=== PATIENT | female | born 1955 | race Caucasian/White ===

== ENCOUNTER 2022-03-16 03:51 | Inpatient (IN) | payer MEDICARE ==
[~2022-03-16] VITALS: Ht 165.1 cm; Wt 138.0 kg
[2022-03-16] MEDS ORDERED: SODIUM CHLORIDE 0.9% 1,000 ML IV ONE (04:00)
[2022-03-16 05:09] LABS: BASOPHILS % (AUTO) 0.3 % (0.0-2.0); EOSINOPHILS % (AUTO) 0.1 % (1.0-6.0); HEMATOCRIT 45.7 % (36-46); HEMOGLOBIN 14.8 g/dL (12.0-16.0); LYMPHOCYTES # (AUTO) 1.9 K/uL (1.0-4.8); LYMPHOCYTES % (AUTO) 16.1 % (22.0-44.0); MEAN CORPUSCULAR HGB CONC 32.4 G/dL (31.0-37.0); MEAN CORPUSCULAR VOLUME 86 fL (80-100); MONOCYTES # (AUTO) 0.8 K/uL (0.1-1.0); MONOCYTES % (AUTO) 6.6 % (2.0-9.0); NEUTROPHILS % (AUTO) 76.9 % (40.0-70.0); PLATELET COUNT (AUTO) 309 K/uL (150-450); RED BLOOD CELL COUNT(AUTO) 5.31 MIL/uL (4.00-5.20); RED CELL DISTRIBUTION WIDTH 14.5 % (11.5-14.5)
[2022-03-16 05:12] LABS: COVID AG,FIA SOURCE NASAL SWAB
[2022-03-16 05:23] LABS: APPEARANCE,URINE CLEAR (CLEAR); GLUCOSE, URINE (UA) >=1000 mg/dL (NEGATIVE); KETONES,URINE =>150 mg/dL (NEGATIVE); LEUKOCYTE ESTERASE ,URINE NEGATIVE (NEGATIVE); NITRATE,URINE NEGATIVE (NEGATIVE); OCCULT BLOOD,URINE NEGATIVE (NEGATIVE); PROTEIN,URINE 30-70 mg/dL (NEGATIVE)
[2022-03-16 05:24] LABS: ALBUMIN 3.8 g/dL (3.4-5.0); BILIRUBIN,TOTAL 0.7 mg/dL (0.1-1.0); CALCIUM, TOTAL 10.4 mg/dL (8.8-10.5); CREATININE 1.69 mg/dL (0.60-1.30); POTASSIUM 4.7 mmol/L (3.5-5.1); PROTHROMBIN TIME 10.5 SEC (9.4-11.6); TOTAL PROTEIN, SERUM 8.3 g/dL (6.4-8.2)
[2022-03-16 05:33] LABS: BILIRUBIN,URINE SMALL (NEGATIVE)
[2022-03-16 05:41] LABS: BACTERIA,URINE None Seen /HPF (None Seen); HYALINE CASTS, URINE 0-2 /LPF (None Seen); RBC,URINE 0-2 /HPF (0-2); SQUAMOUS EPITHELIAL CELL,UR Rare /LPF (None Seen); WBC,URINE 0-2 /HPF (0-5)
[2022-03-16 05:45] LABS: LACTIC ACID 1.9 mmol/L (0.4-2.0)
[2022-03-16] MEDS ORDERED: ONDANSETRON HCL 4 MG/2 ML VIAL IVP ONE (05:45)
[2022-03-16] MEDS ORDERED: INSULIN REGULAR, HUMAN 100 UNITS/ML IVP ONE ×2 (06:00→12:45)
[2022-03-16] MEDS ORDERED: DEXTROSE 50%-WATER 25 GM/50 ML SYRINGE IVP PRN ×3 (06:00→19:30)
[2022-03-16] MEDS ORDERED: INSULIN REGULAR, HUMAN 100 UNITS/ML IVP PRN ×2 (06:00→12:45)
[2022-03-16] MEDS ORDERED: SODIUM CHLORIDE 0.9% 1,000 ML IV SCH ×2 (06:00→12:45)
[2022-03-16] MEDS ORDERED: DEXTROSE 5%-0.45% SODIUM CHL 1,000 ML IV PRN (06:00)
[2022-03-16] MEDS ORDERED: POTASSIUM CHL 20 MEQ/0.45% NS 1,000 ML IV PRN ×2 (06:00→12:45)
[2022-03-16] MEDS ORDERED: POTASSIUM CHLORIDE 40 MEQ in SODIUM CHLORIDE 0.45% 1,000 ML IV PRN ×2 (06:00→12:45)
[2022-03-16] MEDS ORDERED: SODIUM CHLORIDE 0.45% 1,000 ML IV PRN ×2 (06:00→12:45)
[2022-03-16] MEDS ORDERED: INSULIN REGULAR, HUMAN 100 UNITS in SODIUM CHLORIDE 0.9% 99 ML IV PRN ×4 (06:00→12:45)
[2022-03-16 06:29] LABS: CALCIUM, TOTAL 9.7 mg/dL (8.8-10.5); CREATININE 1.61 mg/dL (0.60-1.30); POTASSIUM 4.9 mmol/L (3.5-5.1)
[2022-03-16 06:43] LABS: ABG BASE EXCESS -18.1 mmol/L (-2.0-3.0); ABG CARBOXYHEMOGLOBIN 0.5 % (0.0-1.5); ABG METHEMOGLOBIN 0.4 % (0.0-1.5); ABG OXYGEN CONTENT 21.2 mL/dL (15.0-23.0); ABG OXYGEN SATURATION 97.8 % (95.0-98.0); ABG OXYHEMOGLOBIN 96.9 % (94.0-100.0); ABG PCO2 20 mmHg (35-45); ABG PH 7.266 (7.35-7.450); ABG TOTAL HEMOGLOBIN 15.5 G/dL (12.0-18.0); PO2, ARTERIAL BG 118.6 mmHg (66.0-74.0); SOURCE, BLOOD GAS ARTERIAL
[2022-03-16 06:45] LABS: SITE, BLOOD GAS LFT BRACHIAL
[2022-03-16 07:21] LABS: GLUCOMETER DEV NAME(LOC) ERT.5; GLUCOSE,POINT OF CARE 370 MG/DL (70-110)
[2022-03-16] MEDS ORDERED: NiCARDipine HCL 25 MG in DEXTROSE 5%-WATER 240 ML IV PRN (07:45)
[2022-03-16] MEDS ORDERED: ONDANSETRON HCL 4 MG/2 ML VIAL IVP PRN ×2 (07:45→12:45)
[2022-03-16] MEDS ORDERED: 0.9% SODIUM CHLORIDE 10 ML SYRINGE IVP PRN (07:45)
[2022-03-16] MEDS ORDERED: ACETAMINOPHEN 325 MG TABLET PO PRN ×2 (07:45→12:45)
[2022-03-16 08:58] LABS: CREATININE 1.59 mg/dL (0.60-1.30); MAGNESIUM 2.1 mg/dL (1.80-2.40); PHOSPHORUS 3.9 mg/dL (2.5-4.9); POTASSIUM 5.2 mmol/L (3.5-5.1)
[2022-03-16 09:41] LABS: GLUCOSE,POINT OF CARE 379 MG/DL (70-110)
[2022-03-16 12:01] LABS: GLUCOSE,POINT OF CARE 317 MG/DL (70-110)
[2022-03-16] MEDS ORDERED: MORPHINE SULFATE 2 MG/ML SYRINGE IVP PRN (12:45)
[2022-03-16] MEDS ORDERED: ZOLPIDEM TARTRATE 5 MG TABLET PO PRN (12:45)
[2022-03-16] MEDS ORDERED: MAGNESIUM HYDROXIDE SUSPENSION 30 ML UDCUP PO PRN (12:45)
[2022-03-16] MEDS ORDERED: BISACODYL 10 MG RECTAL RECTAL SUPPOSITORY PR PRN (12:45)
[2022-03-16] MEDS ORDERED: HYDROCODONE/ACETAMINOPHEN 5-325 MG TABLET PO PRN (12:45)
[2022-03-16 14:40] LABS: BASOPHILS % (AUTO) 0.1 % (0.0-2.0); EOSINOPHILS % (AUTO) 0.3 % (1.0-6.0); HEMATOCRIT 44.7 % (36-46); HEMOGLOBIN 14.9 g/dL (12.0-16.0); LYMPHOCYTES # (AUTO) 2.5 K/uL (1.0-4.8); LYMPHOCYTES % (AUTO) 18.4 % (22.0-44.0); MEAN CORPUSCULAR HEMOGLOBIN 28.1 pg (26.0-34.0); MEAN CORPUSCULAR HGB CONC 33.3 G/dL (31.0-37.0); MEAN CORPUSCULAR VOLUME 85 fL (80-100); MONOCYTES # (AUTO) 0.9 K/uL (0.1-1.0); MONOCYTES % (AUTO) 6.5 % (2.0-9.0); NEUTROPHILS # (AUTO) 10.1 K/uL (1.8-7.7); NEUTROPHILS % (AUTO) 74.7 % (40.0-70.0); PLATELET COUNT (AUTO) 272 K/uL (150-450); RED CELL DISTRIBUTION WIDTH 14.3 % (11.5-14.5)
[2022-03-16] MEDS: DEXTROSE 5%-0.45% SODIUM CHL 1,000 ML IV PRN (14:41)
[2022-03-16 14:49] LABS: CALCIUM, TOTAL 10.3 mg/dL (8.8-10.5); CREATININE 1.47 mg/dL (0.60-1.30); POTASSIUM 3.7 mmol/L (3.5-5.1)
[2022-03-16] MEDS ORDERED: NiCARDipine HCL 25 MG in SODIUM CHLORIDE 0.9% 240 ML IV PRN (15:30)
[2022-03-16 16:00] VITALS: BP 140/64
[2022-03-16] MEDS ORDERED: HEPARIN SODIUM,PORCINE 5,000 UNITS/ML VIAL SQ SCH (16:00)
[2022-03-16 18:16] LABS: GLUCOMETER DEV NAME(LOC) AHU.; GLUCOSE,POINT OF CARE 189 MG/DL (70-110)
[2022-03-16 18:16] LABS: GLUCOMETER DEV NAME(LOC) AHU.; GLUCOSE,POINT OF CARE 175 MG/DL (70-110)
[2022-03-16 18:16] LABS: GLUCOMETER DEV NAME(LOC) AHU.; GLUCOSE,POINT OF CARE 215 MG/DL (70-110)
[2022-03-16 18:28] LABS: CALCIUM, TOTAL 9.9 mg/dL (8.8-10.5); CREATININE 1.35 mg/dL (0.60-1.30); POTASSIUM 3.6 mmol/L (3.5-5.1)
[2022-03-16] MEDS ORDERED: SODIUM CHLORIDE 0.45% 1,000 ML IV SCH (19:30)
[2022-03-16] MEDS: INSULIN LISPRO 100 UNITS/ML SQ PRN (19:37)
[2022-03-16 20:00] VITALS: BP 145/84
[2022-03-16] MEDS: DOCUSATE SODIUM 100 MG CAPSULE PO SCH (20:51)
[2022-03-16 21:11] LABS: GLUCOSE,POINT OF CARE 176 MG/DL (70-110)
[2022-03-16 21:11] LABS: GLUCOSE,POINT OF CARE 200 MG/DL (70-110)
[2022-03-16 21:11] LABS: GLUCOSE,POINT OF CARE 199 MG/DL (70-110)
[2022-03-16 21:11] LABS: GLUCOSE,POINT OF CARE 212 MG/DL (70-110)
[2022-03-16 22:27] LABS: CALCIUM, TOTAL 9.8 mg/dL (8.8-10.5); CREATININE 1.37 mg/dL (0.60-1.30); POTASSIUM 3.6 mmol/L (3.5-5.1)
[2022-03-16 23:26] LABS: GLUCOSE,POINT OF CARE 237 MG/DL (70-110)
[2022-03-16 23:26] LABS: GLUCOSE,POINT OF CARE 231 MG/DL (70-110)
[2022-03-17] VITALS: BP 153/89
[2022-03-17 02:28] LABS: CALCIUM, TOTAL 9.7 mg/dL (8.8-10.5); CREATININE 1.34 mg/dL (0.60-1.30); POTASSIUM 3.7 mmol/L (3.5-5.1)
[2022-03-17 03:31] LABS: GLUCOSE,POINT OF CARE 241 MG/DL (70-110)
[2022-03-17 03:31] LABS: GLUCOSE,POINT OF CARE 239 MG/DL (70-110)
[2022-03-17 04:00] VITALS: BP 163/76
[2022-03-17 06:16] LABS: GLUCOSE,POINT OF CARE 244 MG/DL (70-110)
[2022-03-17 06:16] LABS: GLUCOSE,POINT OF CARE 209 MG/DL (70-110)
[2022-03-17 06:17] LABS: GLUCOSE,POINT OF CARE 172 MG/DL (70-110)
[2022-03-17 06:35] LABS: BILIRUBIN,TOTAL 0.5 mg/dL (0.1-1.0); CALCIUM, TOTAL 9.7 mg/dL (8.8-10.5); CREATININE 1.3 mg/dL (0.60-1.30); MAGNESIUM 1.7 mg/dL (1.80-2.40); PHOSPHORUS 2.3 mg/dL (2.5-4.9); POTASSIUM 3.5 mmol/L (3.5-5.1); TOTAL PROTEIN, SERUM 6.8 g/dL (6.4-8.2)
[2022-03-17] MEDS: INSULIN LISPRO 100 UNITS/ML SQ PRN ×4 (07:22→20:54)
[2022-03-17 08:00] VITALS: BP 183/89
[2022-03-17] MEDS ORDERED: MAGNESIUM OXIDE 400 MG TABLET PO ONE (08:45)
[2022-03-17] MEDS: SODIUM,POTASSIUM PHOSPHATES POWDER PACKET PO SCH ×2 (08:50→20:49)
[2022-03-17] MEDS: SODIUM CHLORIDE 0.45% 1,000 ML IV SCH (08:50)
[2022-03-17] MEDS: DOCUSATE SODIUM 100 MG CAPSULE PO SCH ×2 (08:50→20:49)
[2022-03-17] MEDS: PANTOPRAZOLE SODIUM 40 MG DR TABLET PO SCH (08:50)
[2022-03-17] MEDS: INSULIN GLARGINE,HUM.REC.ANLOG 100 UNITS/ML SQ SCH ×2 (08:54→20:51)
[2022-03-17] MEDS: HydrALAZINE HCL 20 MG/ML VIAL IVP PRN (10:09)
[2022-03-17 12:00] VITALS: BP 181/107
[2022-03-17] MEDS: AmLODIPine BESYLATE 10 MG TABLET PO SCH (12:07)
[2022-03-17 12:56] LABS: GLUCOSE,POINT OF CARE 247 MG/DL (70-110)
[2022-03-17 12:56] LABS: GLUCOSE,POINT OF CARE 253 MG/DL (70-110)
[2022-03-17] MEDS ORDERED: HydrALAZINE HCL 20 MG/ML VIAL IVP ONE (13:30)
[2022-03-17] MEDS: CefTRIAXone 1 GM/DEXTROSE 50 ML IV SCH (13:39)
[2022-03-17] MEDS ORDERED: SODIUM CHLORIDE 0.9% 250 ML IV ONE (13:44)
[2022-03-17 16:00] VITALS: BP 165/79
[2022-03-17 20:00] VITALS: BP 131/74
[2022-03-17 20:56] LABS: GLUCOSE,POINT OF CARE 183 MG/DL (70-110)
[2022-03-17 20:56] LABS: GLUCOSE,POINT OF CARE 183 MG/DL (70-110)
[2022-03-17 20:56] LABS: GLUCOSE,POINT OF CARE 329 MG/DL (70-110)
[2022-03-17 20:56] LABS: GLUCOSE,POINT OF CARE 268 MG/DL (70-110)
[2022-03-18] VITALS: BP 148/74
[2022-03-18] MEDS: DEXTROSE 5%-0.45% SODIUM CHL 1,000 ML IV PRN (01:24)
[2022-03-18] MEDS: SODIUM CHLORIDE 0.45% 1,000 ML IV SCH ×2 (01:30→16:33)
[2022-03-18 02:01] LABS: GLUCOSE,POINT OF CARE 259 MG/DL (70-110)
[2022-03-18 04:00] VITALS: BP 156/87
[2022-03-18] MEDS: INSULIN LISPRO 100 UNITS/ML SQ PRN ×4 (06:20→21:20)
[2022-03-18] MEDS: HydrALAZINE HCL 20 MG/ML VIAL IVP PRN ×2 (06:30→15:39)
[2022-03-18 06:39] LABS: BASOPHILS % (AUTO) 0.4 % (0.0-2.0); EOSINOPHILS % (AUTO) 0.9 % (1.0-6.0); HEMATOCRIT 40.7 % (36-46); HEMOGLOBIN 13.6 g/dL (12.0-16.0); LYMPHOCYTES # (AUTO) 2.2 K/uL (1.0-4.8); LYMPHOCYTES % (AUTO) 27.3 % (22.0-44.0); MEAN CORPUSCULAR HGB CONC 33.3 G/dL (31.0-37.0); MEAN CORPUSCULAR VOLUME 84 fL (80-100); MONOCYTES # (AUTO) 0.7 K/uL (0.1-1.0); MONOCYTES % (AUTO) 8.9 % (2.0-9.0); NEUTROPHILS # (AUTO) 4.9 K/uL (1.8-7.7); NEUTROPHILS % (AUTO) 62.5 % (40.0-70.0); PLATELET COUNT (AUTO) 251 K/uL (150-450); RED BLOOD CELL COUNT(AUTO) 4.85 MIL/uL (4.00-5.20); RED CELL DISTRIBUTION WIDTH 14.4 % (11.5-14.5)
[2022-03-18 06:45] LABS: CALCIUM, TOTAL 9.4 mg/dL (8.8-10.5); CREATININE 1.1 mg/dL (0.60-1.30); POTASSIUM 3.5 mmol/L (3.5-5.1)
[2022-03-18 07:53] LABS: MAGNESIUM 1.5 mg/dL (1.80-2.40); PHOSPHORUS 3.8 mg/dL (2.5-4.9)
[2022-03-18 08:00] VITALS: BP 142/101
[2022-03-18] MEDS: DOCUSATE SODIUM 100 MG CAPSULE PO SCH ×2 (08:11→21:00)
[2022-03-18] MEDS: INSULIN GLARGINE,HUM.REC.ANLOG 100 UNITS/ML SQ SCH ×2 (08:14→21:20)
[2022-03-18] MEDS: AmLODIPine BESYLATE 10 MG TABLET PO SCH (08:14)
[2022-03-18] MEDS: PANTOPRAZOLE SODIUM 40 MG DR TABLET PO SCH (08:14)
[2022-03-18 10:41] VITALS: BP 183/79
[2022-03-18 11:31] LABS: GLUCOSE,POINT OF CARE 300 MG/DL (70-110)
[2022-03-18] MEDS ORDERED: MAGNESIUM OXIDE 400 MG TABLET PO ONE (11:45)
[2022-03-18] MEDS: HydrALAZINE HCL 25 MG TABLET PO SCH ×2 (11:45→21:19)
[2022-03-18] MEDS ORDERED: SODIUM CHLORIDE 0.9% 250 ML IV ONE (12:37)
[2022-03-18] MEDS: CefTRIAXone 1 GM/DEXTROSE 50 ML IV SCH (12:38)
[2022-03-18 15:08] VITALS: BP 176/90
[2022-03-18 20:11] VITALS: BP 166/89
[2022-03-19] VITALS (8 sets, daily range): BP systolic 140–186; BP diastolic 68–94
[2022-03-19] MEDS: INSULIN LISPRO 100 UNITS/ML SQ PRN ×4 (05:46→20:29)
[2022-03-19 07:35] LABS: ANION GAP 12 mmol/L (8-16); CALCIUM, TOTAL 9.2 mg/dL (8.8-10.5); CARBON DIOXIDE 24 mmol/L (22-29); CHLORIDE 102 mmol/L (98-107); CREATININE 0.89 mg/dL (0.60-1.30); GLOMERULAR FILTR. RATE CALC > 60 mL/min (>60); GLUCOSE,RANDOM 262 mg/dL (70-110); POTASSIUM 3.1 mmol/L (3.5-5.1); SODIUM SERUM 138 mmol/L (136-145); UREA NITROGEN, BLOOD 13 mg/dL (7-18)
[2022-03-19] MEDS: HydrALAZINE HCL 25 MG TABLET PO SCH ×2 (08:02→20:26)
[2022-03-19] MEDS: PANTOPRAZOLE SODIUM 40 MG DR TABLET PO SCH (08:02)
[2022-03-19] MEDS: DOCUSATE SODIUM 100 MG CAPSULE PO SCH ×3 (08:02→20:29)
[2022-03-19] MEDS: AmLODIPine BESYLATE 10 MG TABLET PO SCH (08:02)
[2022-03-19] MEDS: INSULIN GLARGINE,HUM.REC.ANLOG 100 UNITS/ML SQ SCH ×2 (08:13→20:28)
[2022-03-19 08:15] LABS: BASOPHILS % (AUTO) 0.5 % (0.0-2.0); EOSINOPHILS % (AUTO) 1.5 % (1.0-6.0); HEMATOCRIT 40.6 % (36-46); HEMOGLOBIN 13.7 g/dL (12.0-16.0); LYMPHOCYTES % (AUTO) 31.4 % (22.0-44.0); MEAN CORPUSCULAR HEMOGLOBIN 28.1 pg (26.0-34.0); MEAN CORPUSCULAR HGB CONC 33.8 G/dL (31.0-37.0); MEAN CORPUSCULAR VOLUME 83 fL (80-100); MONOCYTES # (AUTO) 0.6 K/uL (0.1-1.0); NEUTROPHILS # (AUTO) 3.7 K/uL (1.8-7.7); NEUTROPHILS % (AUTO) 57.6 % (40.0-70.0); PLATELET COUNT (AUTO) 220 K/uL (150-450); RED BLOOD CELL COUNT(AUTO) 4.89 MIL/uL (4.00-5.20); RED CELL DISTRIBUTION WIDTH 14.2 % (11.5-14.5)
[2022-03-19] MEDS ORDERED: MAGNESIUM OXIDE 400 MG TABLET PO ONE (09:00)
[2022-03-19] MEDS ORDERED: POTASSIUM CHLORIDE 20 MEQ ER TABLET PO ONE (09:00)
[2022-03-19] MEDS: SODIUM CHLORIDE 0.45% 1,000 ML IV SCH (13:04)
[2022-03-19] MEDS: CefTRIAXone 1 GM/DEXTROSE 50 ML IV SCH (13:04)
[2022-03-19] MEDS: HydrALAZINE HCL 20 MG/ML VIAL IVP PRN (16:12)
[2022-03-19] MEDS ORDERED: HydrALAZINE HCL 25 MG TABLET PO ONE (20:45)
[2022-03-20 03:36] VITALS: BP 165/96
[2022-03-20 05:32] LABS: GLUCOMETER DEV NAME(LOC) 5N.1C; GLUCOSE,POINT OF CARE 384 MG/DL (70-110)
[2022-03-20] MEDS: INSULIN LISPRO 100 UNITS/ML SQ PRN ×4 (06:25→21:37)
[2022-03-20 06:32] LABS: GLUCOMETER DEV NAME(LOC) 5N.3; GLUCOSE,POINT OF CARE 324 MG/DL (70-110)
[2022-03-20 06:32] LABS: GLUCOMETER DEV NAME(LOC) 5N.3; GLUCOSE,POINT OF CARE 314 MG/DL (70-110)
[2022-03-20 07:11] LABS: GLUCOMETER DEV NAME(LOC) 6N.2; GLUCOSE,POINT OF CARE 286 MG/DL (70-110)
[2022-03-20 07:18] LABS: EOSINOPHILS % (AUTO) 1.5 % (1.0-6.0); HEMATOCRIT 39.6 % (36-46); HEMOGLOBIN 13.2 g/dL (12.0-16.0); LYMPHOCYTES % (AUTO) 30.8 % (22.0-44.0); MEAN CORPUSCULAR HEMOGLOBIN 27.9 pg (26.0-34.0); MEAN CORPUSCULAR HGB CONC 33.4 G/dL (31.0-37.0); MEAN CORPUSCULAR VOLUME 84 fL (80-100); MONOCYTES # (AUTO) 0.5 K/uL (0.1-1.0); NEUTROPHILS # (AUTO) 3.8 K/uL (1.8-7.7); NEUTROPHILS % (AUTO) 58.7 % (40.0-70.0); PLATELET COUNT (AUTO) 185 K/uL (150-450); RED BLOOD CELL COUNT(AUTO) 4.74 MIL/uL (4.00-5.20)
[2022-03-20 07:29] LABS: ANION GAP 10 mmol/L (8-16); CALCIUM, TOTAL 8.9 mg/dL (8.8-10.5); CARBON DIOXIDE 25 mmol/L (22-29); CHLORIDE 102 mmol/L (98-107); CREATININE 0.82 mg/dL (0.60-1.30); GLOMERULAR FILTR. RATE CALC > 60 mL/min (>60); GLUCOSE,RANDOM 282 mg/dL (70-110); POTASSIUM 3.5 mmol/L (3.5-5.1); SODIUM SERUM 137 mmol/L (136-145); UREA NITROGEN, BLOOD 12 mg/dL (7-18)
[2022-03-20 08:12] VITALS: BP 166/72
[2022-03-20] MEDS: AmLODIPine BESYLATE 10 MG TABLET PO SCH (08:22)
[2022-03-20] MEDS: DOCUSATE SODIUM 100 MG CAPSULE PO SCH ×2 (08:22→21:00)
[2022-03-20] MEDS: PANTOPRAZOLE SODIUM 40 MG DR TABLET PO SCH (08:22)
[2022-03-20 08:26] LABS: GLUCOMETER DEV NAME(LOC) 5S.1B; GLUCOSE,POINT OF CARE 258 MG/DL (70-110)
[2022-03-20 08:26] LABS: GLUCOMETER DEV NAME(LOC) 5S.1B; GLUCOSE,POINT OF CARE 362 MG/DL (70-110)
[2022-03-20 08:26] LABS: GLUCOMETER DEV NAME(LOC) 5S.1B; GLUCOSE,POINT OF CARE 302 MG/DL (70-110)
[2022-03-20] MEDS: INSULIN GLARGINE,HUM.REC.ANLOG 100 UNITS/ML SQ SCH ×2 (08:28→21:36)
[2022-03-20] MEDS: HydrALAZINE HCL 50 MG TABLET PO SCH ×2 (11:08→21:32)
[2022-03-20] MEDS ORDERED: ENALAPRILAT DIHYDRATE 1.25 MG/ML VIAL IVP PRN (13:00)
[2022-03-20] MEDS ORDERED: MAGNESIUM SULFATE 3 GM in DEXTROSE 5%-WATER 100 ML IV ONE (13:00)
[2022-03-20 16:11] VITALS: BP 159/77
[2022-03-20] MEDS: CefTRIAXone 1 GM/DEXTROSE 50 ML IV SCH (16:29)
[2022-03-20 20:00] VITALS: BP 127/62
[2022-03-21 04:00] VITALS: BP 148/75
[2022-03-21] MEDS: INSULIN LISPRO 100 UNITS/ML SQ PRN ×4 (06:07→21:37)
[2022-03-21 07:16] LABS: BASOPHILS % (AUTO) 0.5 % (0.0-2.0); EOSINOPHILS % (AUTO) 1.2 % (1.0-6.0); HEMATOCRIT 38.3 % (36-46); LYMPHOCYTES % (AUTO) 29.8 % (22.0-44.0); MEAN CORPUSCULAR HEMOGLOBIN 28.4 pg (26.0-34.0); MEAN CORPUSCULAR VOLUME 84 fL (80-100); MONOCYTES # (AUTO) 0.6 K/uL (0.1-1.0); MONOCYTES % (AUTO) 9.4 % (2.0-9.0); NEUTROPHILS # (AUTO) 3.9 K/uL (1.8-7.7); NEUTROPHILS % (AUTO) 59.1 % (40.0-70.0); PLATELET COUNT (AUTO) 182 K/uL (150-450); RED BLOOD CELL COUNT(AUTO) 4.58 MIL/uL (4.00-5.20); RED CELL DISTRIBUTION WIDTH 13.8 % (11.5-14.5)
[2022-03-21 07:34] LABS: ALANINE AMINOTRANSFERASE 11 U/L (12-78); ALBUMIN 2.6 g/dL (3.4-5.0); ALKALINE PHOSPHATASE 61 U/L (46-116); ANION GAP 7 mmol/L (8-16); ASPARTATE AMINOTRANSFERASE 10 U/L (15-37); BILIRUBIN,TOTAL 0.5 mg/dL (0.1-1.0); CALCIUM, TOTAL 8.7 mg/dL (8.8-10.5); CARBON DIOXIDE 29 mmol/L (22-29); CHLORIDE 102 mmol/L (98-107); CREATININE 0.83 mg/dL (0.60-1.30); GLOMERULAR FILTR. RATE CALC > 60 mL/min (>60); GLUCOSE,RANDOM 263 mg/dL (70-110); POTASSIUM 3.5 mmol/L (3.5-5.1); SODIUM SERUM 138 mmol/L (136-145); TOTAL PROTEIN, SERUM 6.1 g/dL (6.4-8.2); UREA NITROGEN, BLOOD 13 mg/dL (7-18)
[2022-03-21 08:00] VITALS: BP 158/81
[2022-03-21] MEDS: DOCUSATE SODIUM 100 MG CAPSULE PO SCH ×2 (09:00→21:00)
[2022-03-21] MEDS: HydrALAZINE HCL 50 MG TABLET PO SCH ×2 (11:10→21:35)
[2022-03-21] MEDS: PANTOPRAZOLE SODIUM 40 MG DR TABLET PO SCH (11:11)
[2022-03-21] MEDS: LISINOPRIL 5 MG TABLET PO SCH (11:11)
[2022-03-21] MEDS: AmLODIPine BESYLATE 10 MG TABLET PO SCH (11:11)
[2022-03-21] MEDS: INSULIN GLARGINE,HUM.REC.ANLOG 100 UNITS/ML SQ SCH ×2 (11:12→21:38)
[2022-03-21 16:00] VITALS: BP 163/89
[2022-03-21 16:21] LABS: GLUCOMETER DEV NAME(LOC) 5N.1C; GLUCOSE,POINT OF CARE 262 MG/DL (70-110)
[2022-03-21 16:32] LABS: GLUCOMETER DEV NAME(LOC) 6N.2; GLUCOSE,POINT OF CARE 324 MG/DL (70-110)
[2022-03-21 16:38] LABS: GLUCOMETER DEV NAME(LOC) 6N.1; GLUCOSE,POINT OF CARE 325 MG/DL (70-110)
[2022-03-21 16:38] LABS: GLUCOMETER DEV NAME(LOC) 6N.1; GLUCOSE,POINT OF CARE 288 MG/DL (70-110)
[2022-03-21 16:39] LABS: GLUCOMETER DEV NAME(LOC) 6N.2; GLUCOSE,POINT OF CARE 324 MG/DL (70-110)
[2022-03-21] MEDS: CefTRIAXone 1 GM/DEXTROSE 50 ML IV SCH (16:59)
[2022-03-21 19:01] LABS: GLUCOMETER DEV NAME(LOC) 6N.1; GLUCOSE,POINT OF CARE 317 MG/DL (70-110)
[2022-03-21 19:01] LABS: GLUCOMETER DEV NAME(LOC) 6N.1; GLUCOSE,POINT OF CARE 268 MG/DL (70-110)
[2022-03-21 19:30] VITALS: BP 116/52
[2022-03-21 22:21] LABS: GLUCOMETER DEV NAME(LOC) 6N.2; GLUCOSE,POINT OF CARE 258 MG/DL (70-110)
[2022-03-22 04:00] VITALS: BP 138/72
[2022-03-22 06:46] LABS: BASOPHILS % (AUTO) 0.3 % (0.0-2.0); EOSINOPHILS % (AUTO) 1.4 % (1.0-6.0); HEMATOCRIT 39.5 % (36-46); HEMOGLOBIN 13.1 g/dL (12.0-16.0); LYMPHOCYTES # (AUTO) 2.4 K/uL (1.0-4.8); LYMPHOCYTES % (AUTO) 32.6 % (22.0-44.0); MEAN CORPUSCULAR HEMOGLOBIN 27.8 pg (26.0-34.0); MEAN CORPUSCULAR HGB CONC 33.1 G/dL (31.0-37.0); MEAN CORPUSCULAR VOLUME 84 fL (80-100); MONOCYTES # (AUTO) 0.7 K/uL (0.1-1.0); MONOCYTES % (AUTO) 9.3 % (2.0-9.0); NEUTROPHILS # (AUTO) 4.1 K/uL (1.8-7.7); NEUTROPHILS % (AUTO) 56.4 % (40.0-70.0); PLATELET COUNT (AUTO) 200 K/uL (150-450); RED BLOOD CELL COUNT(AUTO) 4.71 MIL/uL (4.00-5.20); RED CELL DISTRIBUTION WIDTH 14.3 % (11.5-14.5)
[2022-03-22 06:54] LABS: ALANINE AMINOTRANSFERASE 12 U/L (12-78); ALBUMIN 2.7 g/dL (3.4-5.0); ALKALINE PHOSPHATASE 58 U/L (46-116); ANION GAP 9 mmol/L (8-16); ASPARTATE AMINOTRANSFERASE 8 U/L (15-37); BILIRUBIN,TOTAL 0.5 mg/dL (0.1-1.0); CALCIUM, TOTAL 9.1 mg/dL (8.8-10.5); CARBON DIOXIDE 27 mmol/L (22-29); CHLORIDE 102 mmol/L (98-107); CREATININE 0.85 mg/dL (0.60-1.30); GLOMERULAR FILTR. RATE CALC > 60 mL/min (>60); GLUCOSE,RANDOM 252 mg/dL (70-110); POTASSIUM 3.6 mmol/L (3.5-5.1); SODIUM SERUM 138 mmol/L (136-145); TOTAL PROTEIN, SERUM 6.3 g/dL (6.4-8.2); UREA NITROGEN, BLOOD 16 mg/dL (7-18)
[2022-03-22] MEDS: INSULIN LISPRO 100 UNITS/ML SQ PRN ×3 (06:54→17:02)
[2022-03-22] MEDS: HydrALAZINE HCL 50 MG TABLET PO SCH (08:21)
[2022-03-22] MEDS: PANTOPRAZOLE SODIUM 40 MG DR TABLET PO SCH (08:21)
[2022-03-22] MEDS: AmLODIPine BESYLATE 10 MG TABLET PO SCH (08:21)
[2022-03-22] MEDS: DOCUSATE SODIUM 100 MG CAPSULE PO SCH (08:21)
[2022-03-22] MEDS: LISINOPRIL 5 MG TABLET PO SCH (08:21)
[2022-03-22] MEDS: INSULIN GLARGINE,HUM.REC.ANLOG 100 UNITS/ML SQ SCH (08:23)
[2022-03-22 08:24] VITALS: BP 140/76
[2022-03-22 08:26] LABS: GLUCOMETER DEV NAME(LOC) 6N.2; GLUCOSE,POINT OF CARE 257 MG/DL (70-110)
[2022-03-22 14:01] LABS: GLUCOMETER DEV NAME(LOC) 6N.2; GLUCOSE,POINT OF CARE 333 MG/DL (70-110)
[2022-03-22] MEDS: CefTRIAXone 1 GM/DEXTROSE 50 ML IV SCH (15:35)
[2022-03-22] MEDS ORDERED: AMLO-258 PO (15:55)
[2022-03-22] MEDS ORDERED: DOCU-385 PO (15:55)
[2022-03-22] MEDS ORDERED: HYDR50TA36 PO (15:56)
[2022-03-22] MEDS ORDERED: PANT-31 PO (15:56)
[2022-03-22] MEDS ORDERED: LISI-892 PO (15:56)
[2022-03-22] MEDS ORDERED: INSLAN SQ (15:56)
[2022-03-22] MEDS ORDERED: BISA10SU11 PR (15:57)
[2022-03-22] MEDS ORDERED: ACET650S24 PR (15:57)
[2022-03-22] MEDS ORDERED: HYDR-4723 PO (15:57)
[2022-03-22] MEDS ORDERED: INSU100V SQ (15:58)
[2022-03-22] MEDS ORDERED: CEFD300C3 PO (16:00)
[2022-03-22] MEDS ORDERED: LACT1CAP PO (16:01)
[2022-03-22 16:45] VITALS: BP 142/78
[2022-03-22 20:46] LABS: GLUCOMETER DEV NAME(LOC) 6N.1; GLUCOSE,POINT OF CARE 308 MG/DL (70-110)
== END 2022-03-22 20:18 | DRG 64 ==
LOC: EMS 03:54 → EDBD 03:54 → ICU 11:25 → 5S 03-18 10:15 → 6N 03-19 21:35
PROVIDERS: ADMIT Internal Medicine; ATTEND Internal Medicine
DX: I62.01 Nontraumatic acute subdural hemorrhage (principal); E11.10 Type 2 diabetes mellitus with ketoacidosis without coma; G93.41 Metabolic encephalopathy; R65.11 Systemic inflammatory response syndrome (SIRS) of non-infectious origin with acute organ dysfunction; I16.1 Hypertensive emergency; Z68.43 Body mass index [BMI] 50.0-59.9, adult; E66.01 Morbid (severe) obesity due to excess calories; Z60.2 Problems related to living alone; E87.5 Hyperkalemia; E78.5 Hyperlipidemia, unspecified; I10 Essential (primary) hypertension; N19 Unspecified kidney failure; Z20.822 Contact with and (suspected) exposure to COVID-19; Z79.4 Long term (current) use of insulin
CPT/HCPCS: 36600; 70450; 71045; 80048; 80053; 81001; 81003; 82010; 82140; 82805; 82962; 83036; 83605; 83735; 83880; 84100; 84484; 85025; 85610; 85730; 86850; 86900; 86901; 87040; 87077; 87081; 87205; 92610; 93005; 97116; 97162; 97530; 99291; G0378; J0360; J0696; J1644; J1815; J2405; J3475; J3480; J3490; J7030; J7050; J7060; 36415-L1; 36415-TC

== ENCOUNTER 2022-05-04 12:58 | Emergency (ER) | payer MEDICARE ==
[~2022-05-04] VITALS: Ht 165.1 cm; Wt 131.5 kg
[~2022-05-04 12:58] MED LIST: ACET650S24 PR; AMLO-258 PO; ATOR20TA86 PO; BISA10SU11 PR; CEFD300C3 PO; DOCU-385 PO; HYDR-4723 PO; HYDR50TA36 PO; INSLAN SQ; INSNOV SQ; INSU100V SQ; LACT1CAP PO; LISI-892 PO; LISI-894 PO; PANT-31 PO
[2022-05-04] MEDS ORDERED: BARIUM SULFATE 0.1% SUSPENSION 450 ML BOTTLE PO ONE (13:45)
[2022-05-04] MEDS ORDERED: HYDROmorphone 2 MG/ML VIAL IVP ONE (13:45)
[2022-05-04] MEDS ORDERED: SODIUM CHLORIDE 0.9% 1,000 ML IV ONE (13:45)
[2022-05-04] MEDS ORDERED: ONDANSETRON HCL 4 MG/2 ML VIAL IVP ONE (13:45)
[2022-05-04 14:16] LABS: BASOPHILS % (AUTO) 0.5 % (0.0-2.0); EOSINOPHILS % (AUTO) 0.8 % (1.0-6.0); HEMATOCRIT 36.5 % (36-46); HEMOGLOBIN 12.3 g/dL (12.0-16.0); LYMPHOCYTES # (AUTO) 1.9 K/uL (1.0-4.8); LYMPHOCYTES % (AUTO) 36.1 % (22.0-44.0); MEAN CORPUSCULAR HEMOGLOBIN 27.7 pg (26.0-34.0); MEAN CORPUSCULAR HGB CONC 33.7 G/dL (31.0-37.0); MEAN CORPUSCULAR VOLUME 82 fL (80-100); MONOCYTES # (AUTO) 0.5 K/uL (0.1-1.0); MONOCYTES % (AUTO) 9.3 % (2.0-9.0); NEUTROPHILS # (AUTO) 2.8 K/uL (1.8-7.7); NEUTROPHILS % (AUTO) 53.3 % (40.0-70.0); PLATELET COUNT (AUTO) 206 K/uL (150-450); RED BLOOD CELL COUNT(AUTO) 4.46 MIL/uL (4.00-5.20); RED CELL DISTRIBUTION WIDTH 14.3 % (11.5-14.5)
[2022-05-04 14:24] LABS: CREATININE 1.69 mg/dL (0.60-1.30); POTASSIUM 3.8 mmol/L (3.5-5.1)
[2022-05-04 14:30] LABS: ALBUMIN 3.2 g/dL (3.4-5.0); BILIRUBIN,TOTAL 0.3 mg/dL (0.1-1.0); TOTAL PROTEIN, SERUM 6.7 g/dL (6.4-8.2)
[2022-05-04 14:32] LABS: LACTIC ACID 1.1 mmol/L (0.4-2.0)
[2022-05-04 16:42] LABS: COVID AG,FIA SOURCE NASAL SWAB
[2022-05-04 21:12] VITALS: BP 126/56
== END 2022-05-04 21:15 | disposition short-term general hospital (02) ==
LOC: EMS 12:58
DX: N17.9 Acute kidney failure, unspecified (principal); R10.9 Unspecified abdominal pain; E86.0 Dehydration; R62.7 Adult failure to thrive; E11.9 Type 2 diabetes mellitus without complications; I10 Essential (primary) hypertension; R39.81 Functional urinary incontinence; Z90.49 Acquired absence of other specified parts of digestive tract; Z86.79 Personal history of other diseases of the circulatory system; Z90.710 Acquired absence of both cervix and uterus; Z20.822 Contact with and (suspected) exposure to COVID-19
CPT/HCPCS: 99285; 70450; 96374; 71045; 96361; 96375; 87426; 80053; 82962; 83605; 83690; 83880; 84484; 85025; 87040; 87205; 36415; 87077; 74176; 51702; 93005; J1170; J2405; Q9967; J7030

== ENCOUNTER 2022-07-03 22:29 | Emergency (ER) | payer MEDICARE ==
[~2022-07-03] VITALS: Ht 165.1 cm; Wt 135.4 kg
[~2022-07-03 22:29] MED LIST changes: +CEFD300C18 PO; -CEFD300C3 PO
[2022-07-03] MEDS ORDERED: LOPE-232 PO (23:05)
[2022-07-03 23:29] LABS: APPEARANCE,URINE TURBID (CLEAR); GLUCOSE, URINE (UA) 70-100 mg/dL (NEGATIVE); LEUKOCYTE ESTERASE ,URINE SMALL (NEGATIVE); NITRATE,URINE NEGATIVE (NEGATIVE); OCCULT BLOOD,URINE NEGATIVE (NEGATIVE); PH,URINE 5.5 (5.0-8.0); PROTEIN,URINE 30-70 mg/dL (NEGATIVE); SPECIFIC GRAVITIY, URINE 1.033 (1.003-1.030)
[2022-07-03 23:40] LABS: BILIRUBIN,URINE SMALL (NEGATIVE)
[2022-07-03 23:49] LABS: BACTERIA,URINE Few /HPF (None Seen); RBC,URINE None Seen /HPF (0-2)
[2022-07-04] MEDS ORDERED: METOCLOPRAMIDE HCL 5 MG/ML 2 ML VIAL IVP ONE (00:30)
[2022-07-04] MEDS ORDERED: SODIUM CHLORIDE 0.9% 1,000 ML IV ONE (00:30)
[2022-07-04 00:39] LABS: BASOPHILS % (AUTO) 0.6 % (0.0-2.0); EOSINOPHILS % (AUTO) 0.4 % (1.0-6.0); HEMATOCRIT 38.8 % (36-46); HEMOGLOBIN 13.1 g/dL (12.0-16.0); LYMPHOCYTES # (AUTO) 1.9 K/uL (1.0-4.8); LYMPHOCYTES % (AUTO) 16.9 % (22.0-44.0); MEAN CORPUSCULAR HEMOGLOBIN 27.8 pg (26.0-34.0); MEAN CORPUSCULAR HGB CONC 33.7 G/dL (31.0-37.0); MEAN CORPUSCULAR VOLUME 83 fL (80-100); MONOCYTES # (AUTO) 0.6 K/uL (0.1-1.0); MONOCYTES % (AUTO) 5.5 % (2.0-9.0); NEUTROPHILS # (AUTO) 8.4 K/uL (1.8-7.7); NEUTROPHILS % (AUTO) 76.6 % (40.0-70.0); PLATELET COUNT (AUTO) 261 K/uL (150-450); RED CELL DISTRIBUTION WIDTH 15.1 % (11.5-14.5)
[2022-07-04 00:58] LABS: CALCIUM, TOTAL 9.7 mg/dL (8.8-10.5); CREATININE 1.2 mg/dL (0.60-1.30); POTASSIUM 3.8 mmol/L (3.5-5.1)
[2022-07-04 01:04] LABS: ALBUMIN 3.4 g/dL (3.4-5.0); BILIRUBIN,TOTAL 0.6 mg/dL (0.1-1.0); TOTAL PROTEIN, SERUM 7.1 g/dL (6.4-8.2)
[2022-07-04 05:02] VITALS: BP 135/72
[2022-07-04] MEDS ORDERED: POLY17PO PO (06:50)
[2022-07-04] MEDS ORDERED: ONDA-104 PO (06:54)
== END 2022-07-04 08:04 | disposition home or self-care (01) ==
LOC: EMS 22:55
DX: R10.13 Epigastric pain (principal); K59.00 Constipation, unspecified; E11.9 Type 2 diabetes mellitus without complications; I10 Essential (primary) hypertension; Z86.79 Personal history of other diseases of the circulatory system; Z90.49 Acquired absence of other specified parts of digestive tract; Z90.710 Acquired absence of both cervix and uterus
CPT/HCPCS: 99285; 80053; 81001; 82962; 83690; 84484; 85025; 36415; 74176; 96374; 96361; 93005; J2765; J7030

== ENCOUNTER 2022-10-29 11:29 | Inpatient (IN) | payer MEDICARE ==
[~2022-10-29] VITALS: Ht 165.1 cm; Wt 121.0 kg
[~2022-10-29 11:29] MED LIST changes: +LOPE-232 PO; +ONDA-104 PO; +POLY17PO PO
[2022-10-29] MEDS ORDERED: SODIUM CHLORIDE 0.9% 1,000 ML IV ONE (12:30)
[2022-10-29] MEDS ORDERED: AmLODIPine BESYLATE 10 MG TABLET PO ONE (12:45)
[2022-10-29] MEDS ORDERED: LISINOPRIL 10 MG TABLET PO ONE (12:45)
[2022-10-29 13:20] LABS: COVID AG,FIA SOURCE NASAL SWAB
[2022-10-29 13:21] LABS: BASOPHILS % (AUTO) 0.6 % (0.0-2.0); EOSINOPHILS % (AUTO) 0.4 % (1.0-6.0); HEMATOCRIT 48.3 % (36-46); HEMOGLOBIN 15.8 g/dL (12.0-16.0); LYMPHOCYTES # (AUTO) 1.9 K/uL (1.0-4.8); LYMPHOCYTES % (AUTO) 14.3 % (22.0-44.0); MEAN CORPUSCULAR HEMOGLOBIN 27.5 pg (26.0-34.0); MEAN CORPUSCULAR HGB CONC 32.8 G/dL (31.0-37.0); MEAN CORPUSCULAR VOLUME 84 fL (80-100); MONOCYTES # (AUTO) 0.6 K/uL (0.1-1.0); MONOCYTES % (AUTO) 4.7 % (2.0-9.0); NEUTROPHILS # (AUTO) 10.8 K/uL (1.8-7.7); PLATELET COUNT (AUTO) 251 K/uL (150-450); RED BLOOD CELL COUNT(AUTO) 5.76 MIL/uL (4.00-5.20); RED CELL DISTRIBUTION WIDTH 13.9 % (11.5-14.5)
[2022-10-29 13:36] LABS: ALBUMIN 3.4 g/dL (3.4-5.0); BILIRUBIN,TOTAL 0.7 mg/dL (0.1-1.0); CALCIUM, TOTAL 9.9 mg/dL (8.8-10.5); CREATININE 1.22 mg/dL (0.60-1.30); POTASSIUM 4.3 mmol/L (3.5-5.1); TOTAL PROTEIN, SERUM 7.7 g/dL (6.4-8.2)
[2022-10-29 13:50] LABS: INFLUENZA TYPE A NEGATIVE FOR TYPE A (NEGATIVE); INFLUENZA TYPE B NEGATIVE FOR TYPE B (NEGATIVE)
[2022-10-29] MEDS ORDERED: INSULIN REGULAR, HUMAN 100 UNITS in SODIUM CHLORIDE 0.9% 99 ML IV PRN ×2 (14:00)
[2022-10-29] MEDS ORDERED: SODIUM CHLORIDE 0.45% 1,000 ML IV PRN (14:00)
[2022-10-29] MEDS ORDERED: POTASSIUM CHLORIDE 40 MEQ in SODIUM CHLORIDE 0.45% 1,000 ML IV PRN (14:00)
[2022-10-29] MEDS ORDERED: DEXTROSE 50%-WATER 25 GM/50 ML SYRINGE IVP PRN ×2 (14:00→18:45)
[2022-10-29] MEDS ORDERED: SODIUM CHLORIDE 0.9% 1,000 ML IV SCH (14:00)
[2022-10-29] MEDS ORDERED: DEXTROSE 5%-0.45% SODIUM CHL 1,000 ML IV PRN (14:00)
[2022-10-29] MEDS ORDERED: POTASSIUM CHL 20 MEQ/0.45% NS 1,000 ML IV PRN (14:00)
[2022-10-29 14:37] LABS: ABG METHEMOGLOBIN 0.3 % (0.0-1.5); SOURCE, BLOOD GAS ARTERIAL; TEMPERATURE, FAHRENHEIT, BG 98.1 FAHREN (96.0-98.6)
[2022-10-29 14:42] LABS: ABG BASE EXCESS -7.5 mmol/L (-2.0-3.0); ABG CARBOXYHEMOGLOBIN 0.9 % (0.0-1.5); ABG HCO3 19.7 mmol/L (22.0-26.0); ABG OXYGEN CONTENT 20.5 mL/dL (15.0-23.0); ABG OXYGEN SATURATION 98.3 % (95.0-98.0); ABG OXYHEMOGLOBIN 97.1 % (94.0-100.0); ABG PCO2 27 mmHg (35-45); ABG PH 7.414 (7.35-7.450); ABG TOTAL HEMOGLOBIN 14.9 G/dL (12.0-18.0); PO2, ARTERIAL BG 109.8 mmHg (79.0-87.0)
[2022-10-29 14:43] LABS: APPEARANCE,URINE HAZY (CLEAR); BILIRUBIN,URINE NEGATIVE (NEGATIVE); GLUCOSE, URINE (UA) >=1000 mg/dL (NEGATIVE); KETONES,URINE =>150 mg/dL (NEGATIVE); LEUKOCYTE ESTERASE ,URINE MODERATE (NEGATIVE); NITRATE,URINE NEGATIVE (NEGATIVE); OCCULT BLOOD,URINE NEGATIVE (NEGATIVE); PROTEIN,URINE 30-70 mg/dL (NEGATIVE); SPECIFIC GRAVITIY, URINE 1.027 (1.003-1.030); UROBILINOGEN,URINE <=1.0 mg/dL (<=1.0)
[2022-10-29 14:51] LABS: ABG A-A DIFF O2 7.5 mmHg (10-20.0); O2 DEVICE,BLOOD GAS ROOM AIR (ROOM AIR); SITE, BLOOD GAS LFT RADIAL
[2022-10-29 15:23] LABS: ANION GAP 16 mmol/L (8-16); CALCIUM, TOTAL 9.8 mg/dL (8.8-10.5); CARBON DIOXIDE 22 mmol/L (22-29); CHLORIDE 100 mmol/L (98-107); CREATININE 1.19 mg/dL (0.60-1.30); GLOMERULAR FILTR. RATE CALC 45 mL/min (>60); POTASSIUM 3.9 mmol/L (3.5-5.1); SODIUM SERUM 138 mmol/L (136-145); UREA NITROGEN, BLOOD 18 mg/dL (7-18)
[2022-10-29 15:25] LABS: GLUCOSE,RANDOM 408 mg/dL (70-110)
[2022-10-29] MEDS: INSULIN REGULAR, HUMAN 100 UNITS/ML IVP PRN ×2 (15:34→16:15)
[2022-10-29 15:36] LABS: GLUCOSE,POINT OF CARE 344 MG/DL (70-110)
[2022-10-29] MEDS ORDERED: ONDANSETRON HCL 4 MG/2 ML VIAL IVP PRN ×2 (16:00→17:00)
[2022-10-29] MEDS ORDERED: 0.9% SODIUM CHLORIDE 10 ML SYRINGE IVP PRN ×2 (16:00→17:00)
[2022-10-29] MEDS ORDERED: ACETAMINOPHEN 325 MG TABLET PO PRN (16:00)
[2022-10-29 16:13] LABS: BACTERIA,URINE Moderate /HPF (None Seen); RBC,URINE 0-2 /HPF (0-2); SQUAMOUS EPITHELIAL CELL,UR Few /LPF (None Seen); YEAST,URINE Few /HPF (None Seen)
[2022-10-29 16:22] LABS: GLUCOSE,POINT OF CARE 280 MG/DL (70-110)
[2022-10-29] MEDS ORDERED: CefTRIAXone 1 GM/DEXTROSE 50 ML IV ONE (16:45)
[2022-10-29] MEDS ORDERED: HydrALAZINE HCL 20 MG/ML VIAL IVP PRN (17:00)
[2022-10-29] MEDS ORDERED: IPRATROPIUM BROMIDE 0.5 MG/2.5 ML NEB SOLUTION NEB PRN (17:00)
[2022-10-29] MEDS ORDERED: ALBUTEROL SULFATE 2.5 MG/0.5 ML NEB SOLUTION NEB PRN (17:00)
[2022-10-29 17:16] LABS: GLUCOSE,POINT OF CARE 198 MG/DL (70-110)
[2022-10-29] MEDS: PANTOPRAZOLE SODIUM 40 MG/VIAL IVP SCH (17:19)
[2022-10-29 17:41] LABS: GLUCOSE,POINT OF CARE 190 MG/DL (70-110)
[2022-10-29 17:56] LABS: CREATININE 1.23 mg/dL (0.60-1.30)
[2022-10-29 17:57] LABS: CALCIUM, TOTAL 9.3 mg/dL (8.8-10.5)
[2022-10-29 18:16] LABS: GLUCOSE,POINT OF CARE 136 MG/DL (70-110)
[2022-10-29] MEDS ORDERED: INSULIN REGULAR, HUMAN 100 UNITS/ML SQ ONE (18:45)
[2022-10-29] MEDS ORDERED: HydrALAZINE HCL 25 MG TABLET PO ONE (18:45)
[2022-10-29] MEDS ORDERED: INSULIN GLARGINE,HUM.REC.ANLOG 100 UNITS/ML SQ ONE (18:45)
[2022-10-29] MEDS ORDERED: POTASSIUM CHLORIDE 20 MEQ ER TABLET PO ONE (18:45)
[2022-10-29] MEDS ORDERED: SODIUM CHLORIDE 0.45% 1,000 ML IV ONE (19:00)
[2022-10-29 19:11] LABS: GLUCOSE,POINT OF CARE 129 MG/DL (70-110)
[2022-10-29 20:06] LABS: GLUCOSE,POINT OF CARE 162 MG/DL (70-110)
[2022-10-29] MEDS: INSULIN LISPRO 100 UNITS/ML SQ PRN (20:31)
[2022-10-29] MEDS: LACTOBAC ACID/BULG/BIFID/THERM TABLET PO SCH (22:04)
[2022-10-29 22:23] LABS: ANION GAP 13 mmol/L (8-16); CALCIUM, TOTAL 9.5 mg/dL (8.8-10.5); CARBON DIOXIDE 23 mmol/L (22-29); CHLORIDE 103 mmol/L (98-107); GLUCOSE,RANDOM 255 mg/dL (70-110); POTASSIUM 3.5 mmol/L (3.5-5.1); SODIUM SERUM 139 mmol/L (136-145); UREA NITROGEN, BLOOD 18 mg/dL (7-18)
[2022-10-29 22:31] LABS: CREATININE < 0.15 mg/dL (0.60-1.30); GLOMERULAR FILTR. RATE CALC > 60 mL/min (>60)
[2022-10-29] MEDS ORDERED: VITAMINS A & D 5 GM OINTMENT PACKET TP ONE (23:00)
[2022-10-29] MEDS: INSULIN GLARGINE,HUM.REC.ANLOG 100 UNITS/ML SQ SCH (23:16)
[2022-10-30 02:37] LABS: BASOPHILS % (AUTO) 0.3 % (0.0-2.0); EOSINOPHILS % (AUTO) 1.2 % (1.0-6.0); HEMATOCRIT 38.9 % (36-46); HEMOGLOBIN 12.7 g/dL (12.0-16.0); LYMPHOCYTES # (AUTO) 2.6 K/uL (1.0-4.8); LYMPHOCYTES % (AUTO) 31.4 % (22.0-44.0); MEAN CORPUSCULAR HEMOGLOBIN 26.9 pg (26.0-34.0); MEAN CORPUSCULAR HGB CONC 32.7 G/dL (31.0-37.0); MEAN CORPUSCULAR VOLUME 83 fL (80-100); MONOCYTES # (AUTO) 0.7 K/uL (0.1-1.0); MONOCYTES % (AUTO) 7.8 % (2.0-9.0); NEUTROPHILS % (AUTO) 59.3 % (40.0-70.0); PLATELET COUNT (AUTO) 270 K/uL (150-450); RED BLOOD CELL COUNT(AUTO) 4.71 MIL/uL (4.00-5.20); RED CELL DISTRIBUTION WIDTH 13.7 % (11.5-14.5)
[2022-10-30 02:42] LABS: CALCIUM, TOTAL 8.9 mg/dL (8.8-10.5); CREATININE 1.23 mg/dL (0.60-1.30); POTASSIUM 3.5 mmol/L (3.5-5.1)
[2022-10-30 04:21] LABS: GLUCOSE,POINT OF CARE 281 MG/DL (70-110)
[2022-10-30] MEDS: INSULIN LISPRO 100 UNITS/ML SQ PRN ×5 (04:26→20:15)
[2022-10-30 04:36] LABS: GLUCOSE,POINT OF CARE 310 MG/DL (70-110)
[2022-10-30 07:40] LABS: GLUCOSE,POINT OF CARE 251 MG/DL (70-110)
[2022-10-30] MEDS: PANTOPRAZOLE SODIUM 40 MG/VIAL IVP SCH (08:18)
[2022-10-30] MEDS: ATORVASTATIN CALCIUM 20 MG TABLET PO SCH (08:21)
[2022-10-30] MEDS: AmLODIPine BESYLATE 10 MG TABLET PO SCH (08:21)
[2022-10-30] MEDS: INSULIN GLARGINE,HUM.REC.ANLOG 100 UNITS/ML SQ SCH ×2 (08:31→20:15)
[2022-10-30] MEDS: HydrALAZINE HCL 50 MG TABLET PO SCH ×2 (08:43→20:16)
[2022-10-30] MEDS: LACTOBAC ACID/BULG/BIFID/THERM TABLET PO SCH ×2 (08:43→20:16)
[2022-10-30] MEDS: LISINOPRIL 5 MG TABLET PO SCH (08:43)
[2022-10-30 09:46] LABS: GLUCOSE,POINT OF CARE 331 MG/DL (70-110)
[2022-10-30 09:46] LABS: GLUCOMETER DEV NAME(LOC) ERT.5; GLUCOSE,POINT OF CARE 252 MG/DL (70-110)
[2022-10-30 10:46] LABS: CALCIUM, TOTAL 9.3 mg/dL (8.8-10.5); CREATININE 1.09 mg/dL (0.60-1.30); POTASSIUM 3.5 mmol/L (3.5-5.1)
[2022-10-30 11:34] VITALS: BP 160/72
[2022-10-30 14:56] LABS: GLUCOMETER DEV NAME(LOC) 6N.2B; GLUCOSE,POINT OF CARE 273 MG/DL (70-110)
[2022-10-30 17:16] LABS: GLUCOMETER DEV NAME(LOC) 6N.1; GLUCOSE,POINT OF CARE 352 MG/DL (70-110)
[2022-10-30] MEDS: CefTRIAXone 1 GM/DEXTROSE 50 ML IV SCH (17:21)
[2022-10-30 19:55] VITALS: BP 158/74
[2022-10-30 22:51] LABS: GLUCOMETER DEV NAME(LOC) 6N.2B; GLUCOSE,POINT OF CARE 244 MG/DL (70-110)
[2022-10-31 04:06] VITALS: BP 179/95
[2022-10-31] MEDS: INSULIN LISPRO 100 UNITS/ML SQ PRN ×4 (06:10→20:17)
[2022-10-31] MEDS: HydrALAZINE HCL 50 MG TABLET PO SCH ×2 (06:17→20:16)
[2022-10-31] MEDS: AmLODIPine BESYLATE 10 MG TABLET PO SCH (06:17)
[2022-10-31] MEDS: LISINOPRIL 5 MG TABLET PO SCH (06:17)
[2022-10-31 07:33] VITALS: BP 177/102
[2022-10-31 07:37] LABS: GLUCOMETER DEV NAME(LOC) 6N.2B; GLUCOSE,POINT OF CARE 251 MG/DL (70-110)
[2022-10-31] MEDS: PANTOPRAZOLE SODIUM 40 MG/VIAL IVP SCH (08:34)
[2022-10-31] MEDS: ATORVASTATIN CALCIUM 20 MG TABLET PO SCH (08:34)
[2022-10-31] MEDS: LACTOBAC ACID/BULG/BIFID/THERM TABLET PO SCH ×2 (08:34→20:16)
[2022-10-31] MEDS: INSULIN GLARGINE,HUM.REC.ANLOG 100 UNITS/ML SQ SCH ×2 (08:41→20:17)
[2022-10-31 10:39] LABS: HEMOGLOBIN A1C 13.2 % (3.8-5.6)
[2022-10-31 10:43] LABS: CHOL/HDL RATIO 3.9 (3.9-5.7)
[2022-10-31] MEDS ORDERED: HydrALAZINE HCL 25 MG TABLET PO PRN (13:30)
[2022-10-31] MEDS: ACETAMINOPHEN 325 MG TABLET PO PRN (14:53)
[2022-10-31 15:26] VITALS: BP 149/84
[2022-10-31 17:01] LABS: GLUCOMETER DEV NAME(LOC) 6N.2B; GLUCOSE,POINT OF CARE 336 MG/DL (70-110)
[2022-10-31] MEDS: CefTRIAXone 1 GM/DEXTROSE 50 ML IV SCH (17:17)
[2022-10-31 19:37] VITALS: BP 163/79
[2022-10-31 20:11] LABS: GLUCOMETER DEV NAME(LOC) 6N.1; GLUCOSE,POINT OF CARE 280 MG/DL (70-110)
[2022-11-01 04:05] VITALS: BP 163/76
[2022-11-01] MEDS: LISINOPRIL 5 MG TABLET PO SCH (05:30)
[2022-11-01] MEDS: HydrALAZINE HCL 50 MG TABLET PO SCH ×2 (05:30→20:52)
[2022-11-01] MEDS: AmLODIPine BESYLATE 10 MG TABLET PO SCH (05:30)
[2022-11-01] MEDS: INSULIN LISPRO 100 UNITS/ML SQ PRN ×4 (05:31→20:56)
[2022-11-01 07:01] LABS: GLUCOMETER DEV NAME(LOC) 6N.2B; GLUCOSE,POINT OF CARE 255 MG/DL (70-110)
[2022-11-01 07:46] LABS: GLUCOMETER DEV NAME(LOC) 6N.1; GLUCOSE,POINT OF CARE 285 MG/DL (70-110)
[2022-11-01] MEDS: LACTOBAC ACID/BULG/BIFID/THERM TABLET PO SCH ×2 (08:28→20:52)
[2022-11-01] MEDS: ATORVASTATIN CALCIUM 20 MG TABLET PO SCH (08:28)
[2022-11-01] MEDS: PANTOPRAZOLE SODIUM 40 MG/VIAL IVP SCH (08:28)
[2022-11-01] MEDS: INSULIN GLARGINE,HUM.REC.ANLOG 100 UNITS/ML SQ SCH ×2 (08:59→20:55)
[2022-11-01 13:01] LABS: GLUCOMETER DEV NAME(LOC) 6N.2B; GLUCOSE,POINT OF CARE 301 MG/DL (70-110)
[2022-11-01 16:03] VITALS: BP 161/72
[2022-11-01 18:01] LABS: GLUCOMETER DEV NAME(LOC) 6N.2B; GLUCOSE,POINT OF CARE 260 MG/DL (70-110)
[2022-11-01] MEDS: CefTRIAXone 1 GM/DEXTROSE 50 ML IV SCH (18:01)
[2022-11-01 19:36] VITALS: BP 124/65
[2022-11-01] MEDS: DOCUSATE SODIUM 100 MG CAPSULE PO SCH (20:52)
[2022-11-01] MEDS: ACETAMINOPHEN 325 MG TABLET PO PRN (20:53)
[2022-11-01 22:51] LABS: GLUCOMETER DEV NAME(LOC) 6N.2B; GLUCOSE,POINT OF CARE 283 MG/DL (70-110)
[2022-11-02 04:50] VITALS: BP 162/83
[2022-11-02] MEDS: INSULIN LISPRO 100 UNITS/ML SQ PRN ×2 (05:59→11:24)
[2022-11-02] MEDS: HydrALAZINE HCL 50 MG TABLET PO SCH (06:02)
[2022-11-02 08:13] VITALS: BP 154/81
[2022-11-02 08:31] LABS: GLUCOMETER DEV NAME(LOC) 6N.1; GLUCOSE,POINT OF CARE 187 MG/DL (70-110)
[2022-11-02] MEDS: AmLODIPine BESYLATE 10 MG TABLET PO SCH (09:27)
[2022-11-02] MEDS: DOCUSATE SODIUM 100 MG CAPSULE PO SCH (09:27)
[2022-11-02] MEDS: LISINOPRIL 5 MG TABLET PO SCH (09:27)
[2022-11-02] MEDS: PANTOPRAZOLE SODIUM 40 MG/VIAL IVP SCH (09:27)
[2022-11-02] MEDS: INSULIN GLARGINE,HUM.REC.ANLOG 100 UNITS/ML SQ SCH (09:28)
[2022-11-02] MEDS: LACTOBAC ACID/BULG/BIFID/THERM TABLET PO SCH (09:31)
[2022-11-02] MEDS: ATORVASTATIN CALCIUM 20 MG TABLET PO SCH (09:31)
[2022-11-02] MEDS ORDERED: CEFX2I IV (13:48)
[2022-11-02 14:11] LABS: GLUCOMETER DEV NAME(LOC) 6N.1; GLUCOSE,POINT OF CARE 284 MG/DL (70-110)
== END 2022-11-02 15:40 | DRG 638 ==
LOC: EMS 11:35 → ICUN 17:30 → UNDOADMIN 17:30 → 6S 10-30 10:45
PROVIDERS: ADMIT Internal Medicine; ATTEND Internal Medicine
DX: E11.10 Type 2 diabetes mellitus with ketoacidosis without coma (principal); N39.0 Urinary tract infection, site not specified; Z68.41 Body mass index [BMI] 40.0-44.9, adult; I11.9 Hypertensive heart disease without heart failure; Z20.822 Contact with and (suspected) exposure to COVID-19; B96.89 Other specified bacterial agents as the cause of diseases classified elsewhere; E66.01 Morbid (severe) obesity due to excess calories; E78.5 Hyperlipidemia, unspecified; Z86.73 Personal history of transient ischemic attack (TIA), and cerebral infarction without residual deficits; Z91.14 Patient's other noncompliance with medication regimen; Z90.49 Acquired absence of other specified parts of digestive tract; Z90.710 Acquired absence of both cervix and uterus
CPT/HCPCS: 36600; 74018; 80048; 80053; 80061; 81001; 82009; 82040; 82805; 82962; 83036; 83690; 83735; 83930; 84100; 84145; 85025; 87086; 87186; 87804; 93005; 97116; 97161; 97530; 99291; C9113; G0378; J0696; J1815; J7050; 36415-L1; 36415-TC

== ENCOUNTER 2022-11-30 11:24 | Emergency (ER) | payer MEDICARE ==
[~2022-11-30] VITALS: Ht 165.1 cm; Wt 123.9 kg
[~2022-11-30 11:24] MED LIST changes: -CEFD300C18 PO; +CEFX2I IV; -INSNOV SQ; -LISI-894 PO
[2022-11-30] MEDS ORDERED: MULT-264 PO (11:55)
[2022-11-30 12:11] VITALS: BP 178/79
[2022-11-30] MEDS ORDERED: DOCU-350 PO (14:12)
[2022-11-30] MEDS ORDERED: AMLO10TA55 PO (14:13)
[2022-11-30] MEDS ORDERED: ACETAMINOPHEN 325 MG TABLET PO ONE (14:15)
== END 2022-11-30 14:36 | disposition home or self-care (01) ==
LOC: EMS 11:28
DX: S09.90XA Unspecified injury of head, initial encounter (principal); E11.9 Type 2 diabetes mellitus without complications; I10 Essential (primary) hypertension; Z90.49 Acquired absence of other specified parts of digestive tract; Z90.710 Acquired absence of both cervix and uterus; W07.XXXA Fall from chair, initial encounter; Y93.89 Activity, other specified; Y92.89 Other specified places as the place of occurrence of the external cause; Y99.8 Other external cause status
CPT/HCPCS: 70450; 99284

== ENCOUNTER → 2023-02-10 | Outpatient (CLI) | payer MEDICARE ==
[~2023-02-10] MED LIST changes: +ACET-3385 PO; -AMLO-258 PO; +AMLO10TA55 PO; +ASPI-1444 PO; -BISA10SU11 PR; -CEFX2I IV; +DOCU-350 PO; -DOCU-385 PO; -HYDR-4723 PO; -LOPE-232 PO; +MULT-264 PO; -ONDA-104 PO; +OXYB1PAT4 TP; -PANT-31 PO; -POLY17PO PO; +POTA-204 PO
[2023-02-10 10:16] VITALS: BP 136/71
== END | disposition home or self-care (01) ==
LOC: SRCNTR 10:08
PROVIDERS: ATTEND Internal Medicine
DX: E11.65 Type 2 diabetes mellitus with hyperglycemia (principal); I10 Essential (primary) hypertension; E78.5 Hyperlipidemia, unspecified; M19.011 Primary osteoarthritis, right shoulder; Z79.82 Long term (current) use of aspirin; Z79.899 Other long term (current) drug therapy; Z86.73 Personal history of transient ischemic attack (TIA), and cerebral infarction without residual deficits
CPT/HCPCS: G0463; Z7500

== ENCOUNTER 2023-02-16 17:51 | Emergency (ER) | payer MEDICARE, OTHER ==
[~2023-02-16] VITALS: Ht 165.1 cm; Wt 130.0 kg
[~2023-02-16 17:51] MED LIST changes: -POTA-204 PO
[2023-02-16] MEDS ORDERED: SODIUM CHLORIDE 0.9% 1,000 ML IV ONE (18:00)
[2023-02-16 18:31] LABS: BASOPHILS % (AUTO) 0.2 % (0.0-2.0); EOSINOPHILS % (AUTO) 0.5 % (1.0-6.0); HEMATOCRIT 40.1 % (36-46); HEMOGLOBIN 13.1 g/dL (12.0-16.0); LYMPHOCYTES # (AUTO) 1.7 K/uL (1.0-4.8); LYMPHOCYTES % (AUTO) 15.2 % (22.0-44.0); MEAN CORPUSCULAR HEMOGLOBIN 28.2 pg (26.0-34.0); MEAN CORPUSCULAR HGB CONC 32.7 G/dL (31.0-37.0); MEAN CORPUSCULAR VOLUME 86 fL (80-100); MONOCYTES # (AUTO) 0.6 K/uL (0.1-1.0); MONOCYTES % (AUTO) 5.1 % (2.0-9.0); NEUTROPHILS # (AUTO) 8.8 K/uL (1.8-7.7); PLATELET COUNT (AUTO) 279 K/uL (150-450); RED BLOOD CELL COUNT(AUTO) 4.66 MIL/uL (4.00-5.20); RED CELL DISTRIBUTION WIDTH 16.2 % (11.5-14.5)
[2023-02-16 18:45] LABS: ALANINE AMINOTRANSFERASE 11 U/L (12-78); ALBUMIN 2.4 g/dL (3.4-5.0); ALKALINE PHOSPHATASE 52 U/L (46-116); ANION GAP 11 mmol/L (8-16); ASPARTATE AMINOTRANSFERASE 9 U/L (15-37); BILIRUBIN,TOTAL 0.4 mg/dL (0.1-1.0); CALCIUM, TOTAL 6.6 mg/dL (8.8-10.5); CARBON DIOXIDE 22 mmol/L (22-29); CHLORIDE 113 mmol/L (98-107); CREATININE 0.73 mg/dL (0.60-1.30); GLOMERULAR FILTR. RATE CALC > 60 mL/min (>60); GLUCOSE,RANDOM 228 mg/dL (70-110); LIPASE 41 U/L (73-393); SODIUM SERUM 146 mmol/L (136-145); TOTAL PROTEIN, SERUM 4.9 g/dL (6.4-8.2); UREA NITROGEN, BLOOD 16 mg/dL (7-18)
[2023-02-16 18:46] LABS: POTASSIUM 2.8 mmol/L (3.5-5.1)
[2023-02-16] MEDS ORDERED: POTASSIUM CHLORIDE 20 MEQ ER TABLET PO ONE (19:00)
[2023-02-16 20:01] LABS: APPEARANCE,URINE CLEAR (CLEAR); BILIRUBIN,URINE NEGATIVE (NEGATIVE); GLUCOSE, URINE (UA) >=1000 mg/dL (NEGATIVE); KETONES,URINE TRACE mg/dL (NEGATIVE); LEUKOCYTE ESTERASE ,URINE NEGATIVE (NEGATIVE); NITRATE,URINE NEGATIVE (NEGATIVE); OCCULT BLOOD,URINE NEGATIVE (NEGATIVE); PROTEIN,URINE NEGATIVE (NEGATIVE); SPECIFIC GRAVITIY, URINE 1.025 (1.003-1.030); UROBILINOGEN,URINE <=1.0 mg/dL (<=1.0)
[2023-02-16 20:10] LABS: BACTERIA,URINE None Seen /HPF (None Seen); RBC,URINE None Seen /HPF (0-2); SQUAMOUS EPITHELIAL CELL,UR Rare /LPF (None Seen); WBC,URINE 0-2 /HPF (0-5)
[2023-02-16] MEDS ORDERED: POTA-204 PO (21:25)
[2023-02-16 21:33] VITALS: BP 170/78
== END 2023-02-16 22:50 | disposition home or self-care (01) ==
LOC: EMS 17:51
DX: K52.9 Noninfective gastroenteritis and colitis, unspecified (principal); E87.6 Hypokalemia; F41.9 Anxiety disorder, unspecified; F32.A Depression, unspecified; E11.9 Type 2 diabetes mellitus without complications; E78.00 Pure hypercholesterolemia, unspecified; I10 Essential (primary) hypertension; G43.909 Migraine, unspecified, not intractable, without status migrainosus; Z90.49 Acquired absence of other specified parts of digestive tract; Z90.710 Acquired absence of both cervix and uterus
CPT/HCPCS: 99285; 96360; 70450; 80053; 81001; 82962; 83690; 84484; 85025; 36415; 93005; J7030

== ENCOUNTER 2023-12-01 00:22 | Emergency (ER) | payer MEDICARE ==
[~2023-12-01] VITALS: Ht 175.3 cm; Wt 168.2 kg
[~2023-12-01 00:22] MED LIST changes: -ASPI-1444 PO; -ATOR20TA86 PO; +ATOR40TA71 PO; -DOCU-350 PO; -LISI-892 PO; +LISI-894 PO; +METO25 PO
[2023-12-01 00:54] VITALS: TEMP 97.9
[2023-12-01 01:38] LABS: BASOPHILS % (AUTO) 0.4 % (0.0-2.0); EOSINOPHILS % (AUTO) 1.1 % (1.0-6.0); HEMATOCRIT 38.1 % (36-46); HEMOGLOBIN 12.6 g/dL (12.0-16.0); LYMPHOCYTES # (AUTO) 2.2 K/uL (1.0-4.8); LYMPHOCYTES % (AUTO) 18.4 % (22.0-44.0); MEAN CORPUSCULAR HGB CONC 33.1 G/dL (31.0-37.0); MEAN CORPUSCULAR VOLUME 85 fL (80-100); MONOCYTES # (AUTO) 0.8 K/uL (0.1-1.0); MONOCYTES % (AUTO) 6.4 % (2.0-9.0); NEUTROPHILS # (AUTO) 8.8 K/uL (1.8-7.7); NEUTROPHILS % (AUTO) 73.7 % (40.0-70.0); PLATELET COUNT (AUTO) 260 K/uL (150-450); RED BLOOD CELL COUNT(AUTO) 4.51 MIL/uL (4.00-5.20); RED CELL DISTRIBUTION WIDTH 14.3 % (11.5-14.5); WHITE BLOOD COUNT (AUTO) 11.9 K/uL (4.5-11.0)
[2023-12-01 01:45] LABS: ANION GAP 9 mmol/L (8-16); CALCIUM, TOTAL 9.3 mg/dL (8.8-10.5); CARBON DIOXIDE 29 mmol/L (22-29); CHLORIDE 99 mmol/L (98-107); CREATININE 1.65 mg/dL (0.60-1.30); GLOMERULAR FILTR. RATE CALC 31 mL/min (>60); GLUCOSE,RANDOM 329 mg/dL (70-110); SODIUM SERUM 137 mmol/L (136-145); UREA NITROGEN, BLOOD 21 mg/dL (7-18)
[2023-12-01 01:51] LABS: ALANINE AMINOTRANSFERASE 17 U/L (12-78); ALKALINE PHOSPHATASE 66 U/L (46-116); ASPARTATE AMINOTRANSFERASE 11 U/L (15-37); BILIRUBIN,TOTAL 0.5 mg/dL (0.1-1.0); LIPASE 22 U/L (16-77); TOTAL PROTEIN, SERUM 6.3 g/dL (6.4-8.2)
[2023-12-01 01:53] LABS: TROPONIN I-HIGH SENSITIVITY 38 ng/L (<51)
[2023-12-01 01:59] LABS: B-TYPE NATRIURETIC PEPTIDE 77 pg/mL (0-100)
[2023-12-01] MEDS ORDERED: INSULIN REGULAR, HUMAN 100 UNITS/ML IVP ONE (02:30)
[2023-12-01] MEDS ORDERED: KETOROLAC TROMETHAMINE 30 MG/ML VIAL IVP ONE (02:30)
[2023-12-01] MEDS ORDERED: MAG HYDROX/ALUMINUM HYD/SIMETH ES 30 ML SUSPENSION UDCUP PO ONE (02:30)
[2023-12-01] MEDS ORDERED: SODIUM CHLORIDE 0.9% 1,000 ML IV ONE (02:30)
[2023-12-01] MEDS ORDERED: ACETAMINOPHEN 500 MG TABLET PO ONE (02:30)
[2023-12-01 03:51] LABS: GLUCOMETER DEV NAME(LOC) ER.6; GLUCOSE,POINT OF CARE 226 MG/DL (70-110)
[2023-12-01] MEDS ORDERED: DICY20TA95 PO (04:10)
[2023-12-01] MEDS ORDERED: MAG30ORA11 PO (04:10)
[2023-12-01] MEDS ORDERED: OMEP20 PO (04:10)
[2023-12-01 05:16] VITALS: BP 146/67; PULSE 60; RESP 18
== END 2023-12-01 05:46 | disposition home or self-care (01) ==
LOC: EMS 00:23
DX: S06.5X0A Traumatic subdural hemorrhage without loss of consciousness, initial encounter (principal); E11.65 Type 2 diabetes mellitus with hyperglycemia; E11.43 Type 2 diabetes mellitus with diabetic autonomic (poly)neuropathy; K31.84 Gastroparesis; R10.13 Epigastric pain; X58.XXXA Exposure to other specified factors, initial encounter; Y93.89 Activity, other specified; Y92.89 Other specified places as the place of occurrence of the external cause; Y99.8 Other external cause status; F41.9 Anxiety disorder, unspecified; F32.A Depression, unspecified; E78.00 Pure hypercholesterolemia, unspecified; G43.909 Migraine, unspecified, not intractable, without status migrainosus; I11.9 Hypertensive heart disease without heart failure; Z90.49 Acquired absence of other specified parts of digestive tract; Z90.710 Acquired absence of both cervix and uterus
CPT/HCPCS: 99285; 96374; 71045; 96361; 96375; 80053; 82962; 83605; 83690; 83880; 84484; 85025; 87040; 36415; 93005; J1815; J1885; J7030

== ENCOUNTER 2024-01-05 23:20 | Inpatient (IN) | payer MEDICARE, MEDICAID ==
[~2024-01-05] VITALS: Ht 162.6 cm; Wt 130.0 kg
[~2024-01-05 23:20] MED LIST changes: -ACET-3385 PO; +FLUC100T68 PO; +MAG30ORA11 PO; +OMEP20 PO
[2024-01-06 01:35] LABS: BASOPHILS % (AUTO) 0.4 % (0.0-2.0); EOSINOPHILS % (AUTO) 0.2 % (1.0-6.0); HEMATOCRIT 44.4 % (36-46); HEMOGLOBIN 14.8 g/dL (12.0-16.0); LYMPHOCYTES # (AUTO) 2.2 K/uL (1.0-4.8); LYMPHOCYTES % (AUTO) 14.3 % (22.0-44.0); MEAN CORPUSCULAR HEMOGLOBIN 28.4 pg (26.0-34.0); MEAN CORPUSCULAR HGB CONC 33.3 G/dL (31.0-37.0); MEAN CORPUSCULAR VOLUME 85 fL (80-100); MONOCYTES % (AUTO) 6.7 % (2.0-9.0); NEUTROPHILS # (AUTO) 12.3 K/uL (1.8-7.7); NEUTROPHILS % (AUTO) 78.4 % (40.0-70.0); PLATELET COUNT (AUTO) 277 K/uL (150-450); RED BLOOD CELL COUNT(AUTO) 5.21 MIL/uL (4.00-5.20); RED CELL DISTRIBUTION WIDTH 16.3 % (11.5-14.5); WHITE BLOOD COUNT (AUTO) 15.6 K/uL (4.5-11.0)
[2024-01-06 01:58] LABS: ACETONE,BLOOD 1:32 (NEGATIVE)
[2024-01-06 02:00] LABS: LACTIC ACID 1.4 mmol/L (0.4-2.0)
[2024-01-06 02:03] LABS: ALANINE AMINOTRANSFERASE 15 U/L (12-78); ALBUMIN 3.5 g/dL (3.4-5.0); ALKALINE PHOSPHATASE 68 U/L (46-116); ANION GAP 22 mmol/L (8-16); ASPARTATE AMINOTRANSFERASE 12 U/L (15-37); BILIRUBIN,TOTAL 0.7 mg/dL (0.1-1.0); CALCIUM, TOTAL 10.5 mg/dL (8.8-10.5); CARBON DIOXIDE 18 mmol/L (22-29); CHLORIDE 97 mmol/L (98-107); CREATININE 1.81 mg/dL (0.60-1.30); GLOMERULAR FILTR. RATE CALC 28 mL/min (>60); LIPASE 163 U/L (16-77); POTASSIUM 3.2 mmol/L (3.5-5.1); SODIUM SERUM 137 mmol/L (136-145); TOTAL PROTEIN, SERUM 7.7 g/dL (6.4-8.2); UREA NITROGEN, BLOOD 38 mg/dL (7-18)
[2024-01-06 02:06] LABS: GLUCOSE,RANDOM 423 mg/dL (70-110); TROPONIN I-HIGH SENSITIVITY 77 ng/L (<51)
[2024-01-06] MEDS: SODIUM CHLORIDE 0.9% 2,000 ML IV ONE (02:59)
[2024-01-06] MEDS: ASPIRIN 325 MG TABLET PO ONE (02:59)
[2024-01-06] MEDS: MORPHINE SULFATE 4 MG/ML SYRINGE IVP ONE (02:59)
[2024-01-06] MEDS: ONDANSETRON HCL 4 MG/2 ML VIAL IVP ONE (02:59)
[2024-01-06] MEDS: INSULIN REGULAR, HUMAN 100 UNITS/ML IVP ONE ×2 (03:06→06:25)
[2024-01-06 04:35] LABS: TROPONIN I-HIGH SENSITIVITY 72 ng/L (<51)
[2024-01-06 05:48] LABS: ABG BASE EXCESS -12.9 mmol/L (-2.0-3.0); ABG CARBOXYHEMOGLOBIN 0.8 % (0.0-1.5); ABG HCO3 15.9 mmol/L (22.0-26.0); ABG METHEMOGLOBIN 0.9 % (0.0-1.5); ABG OXYGEN CONTENT 18.9 mL/dL (15.0-23.0); ABG OXYGEN SATURATION 97.9 % (95.0-98.0); ABG OXYHEMOGLOBIN 96.2 % (94.0-100.0); ABG PCO2 25 mmHg (35-45); ABG PH 7.339 (7.35-7.450); ABG TOTAL HEMOGLOBIN 13.9 G/dL (12.0-18.0); PO2, ARTERIAL BG 94.1 mmHg (79.0-87.0); SOURCE, BLOOD GAS ARTERIAL; TEMPERATURE, FAHRENHEIT, BG 97.6 FAHREN (96.0-98.6)
[2024-01-06 05:50] LABS: SITE, BLOOD GAS RT RADIAL
[2024-01-06 05:51] LABS: ALLEN TEST, BLOOD GAS Positive; O2 DEVICE,BLOOD GAS ROOM AIR (ROOM AIR)
[2024-01-06] MEDS ORDERED: DEXTROSE 50%-WATER 25 GM/50 ML SYRINGE IVP PRN (07:15)
[2024-01-06] MEDS: SODIUM CHLORIDE 0.9% 1,000 ML IV ONE (07:44)
[2024-01-06] MEDS: POTASSIUM CHLORIDE 20 MEQ ER TABLET PO ONE (07:44)
[2024-01-06] MEDS: DOCUSATE SODIUM 100 MG CAPSULE PO SCH (09:36)
[2024-01-06] MEDS: ASPIRIN 81 MG CHEWABLE TABLET PO SCH (09:36)
[2024-01-06] MEDS: HEPARIN SODIUM,PORCINE 5,000 UNITS/ML VIAL SQ SCH (09:36)
[2024-01-06] MEDS: FAMOTIDINE 20 MG TABLET PO SCH (09:37)
[2024-01-06] MEDS: INSULIN GLARGINE,HUM.REC.ANLOG 100 UNITS/ML SQ SCH (09:37)
[2024-01-06 12:13] LABS: COVID AG,FIA SOURCE NASAL SWAB
[2024-01-06 12:33] LABS: SARS-COV2 (COVID) ANTIGEN,FIA Negative (Negative)
[2024-01-06] MEDS: INSULIN LISPRO 100 UNITS/ML SQ PRN (13:10)
[2024-01-06 13:18] VITALS: BP 140/59; PULSE 68; RESP 18; TEMP 97.5
[2024-01-06 16:04] VITALS: BP 121/57; PULSE 75; RESP 18; TEMP 97.6
[2024-01-06 17:55] LABS: GLUCOMETER DEV NAME(LOC) 5N.2C; GLUCOSE,POINT OF CARE 331 MG/DL (70-110)
[2024-01-06 18:52] LABS: APPEARANCE,URINE CLEAR (CLEAR); BILIRUBIN,URINE NEGATIVE (NEGATIVE); COLOR,URINE LIGHT YELLOW (YELLOW); GLUCOSE, URINE (UA) >=1000 mg/dL (NEGATIVE); KETONES,URINE 40-60 mg/dL (NEGATIVE); LEUKOCYTE ESTERASE ,URINE TRACE (NEGATIVE); NITRATE,URINE NEGATIVE (NEGATIVE); OCCULT BLOOD,URINE NEGATIVE (NEGATIVE); PROTEIN,URINE TRACE mg/dL (NEGATIVE); SPECIFIC GRAVITIY, URINE 1.037 (1.003-1.030); UROBILINOGEN,URINE <=1.0 mg/dL (<=1.0)
[2024-01-06 18:57] LABS: BACTERIA,URINE Rare /HPF (None Seen); RBC,URINE 0-2 /HPF (0-2); SQUAMOUS EPITHELIAL CELL,UR Few /LPF (None Seen)
[2024-01-06] MEDS ORDERED: INFLUENZA VIRUS VACCINE QVS 2023-24 (6MO+)/PF 60 MCG/0.5 ML SYRINGE IM. ONE (19:00)
[2024-01-06 19:52] VITALS: BP 132/50; PULSE 69; RESP 19; TEMP 97.8
[2024-01-07] VITALS (8 sets, daily range): BP systolic 140–174; BP diastolic 63–78; PULSE 67–82; RESP 18–22; TEMP 97.4–98
[2024-01-07 00:01] LABS: GLUCOMETER DEV NAME(LOC) ERT.5; GLUCOSE,POINT OF CARE 304 MG/DL (70-110)
[2024-01-07 00:14] LABS: GLUCOMETER DEV NAME(LOC) 5N.2C; GLUCOSE,POINT OF CARE 312 MG/DL (70-110)
[2024-01-07 06:56] LABS: BASOPHILS % (AUTO) 0.5 % (0.0-2.0); HEMATOCRIT 39.4 % (36-46); HEMOGLOBIN 13.3 g/dL (12.0-16.0); LYMPHOCYTES # (AUTO) 2.1 K/uL (1.0-4.8); LYMPHOCYTES % (AUTO) 28.6 % (22.0-44.0); MEAN CORPUSCULAR HEMOGLOBIN 28.7 pg (26.0-34.0); MEAN CORPUSCULAR HGB CONC 33.8 G/dL (31.0-37.0); MEAN CORPUSCULAR VOLUME 85 fL (80-100); MONOCYTES # (AUTO) 0.6 K/uL (0.1-1.0); MONOCYTES % (AUTO) 8.1 % (2.0-9.0); NEUTROPHILS # (AUTO) 4.5 K/uL (1.8-7.7); NEUTROPHILS % (AUTO) 61.8 % (40.0-70.0); PLATELET COUNT (AUTO) 160 K/uL (150-450); RED BLOOD CELL COUNT(AUTO) 4.65 MIL/uL (4.00-5.20); WHITE BLOOD COUNT (AUTO) 7.3 K/uL (4.5-11.0)
[2024-01-07 07:05] LABS: GLUCOMETER DEV NAME(LOC) 5S.2C; GLUCOSE,POINT OF CARE 283 MG/DL (70-110)
[2024-01-07 07:11] LABS: CALCIUM, TOTAL 9.7 mg/dL (8.8-10.5); CREATININE 1.32 mg/dL (0.60-1.30); POTASSIUM 3.4 mmol/L (3.5-5.1)
[2024-01-07] MEDS: POTASSIUM CHLORIDE 20 MEQ ER TABLET PO ONE (10:43)
[2024-01-07] MEDS: AmLODIPine BESYLATE 10 MG TABLET PO SCH (10:43)
[2024-01-07 12:16] LABS: GLUCOMETER DEV NAME(LOC) 5N.2C; GLUCOSE,POINT OF CARE 356 MG/DL (70-110)
[2024-01-07 17:40] LABS: GLUCOMETER DEV NAME(LOC) 5S.2C; GLUCOSE,POINT OF CARE 392 MG/DL (70-110)
[2024-01-07] MEDS: INSULIN GLARGINE,HUM.REC.ANLOG 100 UNITS/ML SQ SCH (20:42)
[2024-01-07 23:21] LABS: GLUCOMETER DEV NAME(LOC) 5S.2C; GLUCOSE,POINT OF CARE 341 MG/DL (70-110)
[2024-01-08] VITALS (7 sets, daily range): BP systolic 131–164; BP diastolic 68–89; PULSE 55–88; RESP 16–20; TEMP 97.5–97.9
[2024-01-08 05:56] LABS: CALCIUM, TOTAL 9.4 mg/dL (8.8-10.5); CREATININE 1.07 mg/dL (0.60-1.30); POTASSIUM 3.1 mmol/L (3.5-5.1)
[2024-01-08] MEDS: POTASSIUM CHLORIDE 20 MEQ ER TABLET PO ONE (06:18)
[2024-01-08 08:16] LABS: GLUCOMETER DEV NAME(LOC) 5S.2C; GLUCOSE,POINT OF CARE 307 MG/DL (70-110)
[2024-01-08] MEDS ORDERED: POTASSIUM CHL 10 MEQ/WATER 50 ML IV PRN (10:30)
[2024-01-08] MEDS: POTASSIUM CHLORIDE 20 MEQ ER TABLET PO PRN (14:28)
[2024-01-08 17:50] LABS: GLUCOMETER DEV NAME(LOC) 6N.2B; GLUCOSE,POINT OF CARE 321 MG/DL (70-110)
[2024-01-08 19:30] LABS: GLUCOMETER DEV NAME(LOC) 4E.2; GLUCOSE,POINT OF CARE 374 MG/DL (70-110)
[2024-01-08] MEDS: INSULIN GLARGINE,HUM.REC.ANLOG 100 UNITS/ML SQ SCH (20:54)
[2024-01-09 04:20] VITALS: BP 136/74; PULSE 72; RESP 20; TEMP 97.5
[2024-01-09 06:26] LABS: GLUCOMETER DEV NAME(LOC) 4E.2; GLUCOSE,POINT OF CARE 346 MG/DL (70-110)
[2024-01-09 06:26] LABS: GLUCOMETER DEV NAME(LOC) 4E.2; GLUCOSE,POINT OF CARE 315 MG/DL (70-110)
[2024-01-09] MEDS: INSULIN GLARGINE,HUM.REC.ANLOG 100 UNITS/ML SQ SCH (08:38)
[2024-01-09 08:39] VITALS: BP 136/98; PULSE 90; RESP 18; TEMP 97.4
[2024-01-09] MEDS: ONDANSETRON HCL 4 MG/2 ML VIAL IVP PRN (09:12)
[2024-01-09 14:01] LABS: GLUCOMETER DEV NAME(LOC) 6S.2; GLUCOSE,POINT OF CARE 382 MG/DL (70-110)
[2024-01-09 16:57] VITALS: BP 149/83; PULSE 60; RESP 18; TEMP 97.5
[2024-01-09 18:56] LABS: GLUCOMETER DEV NAME(LOC) 4E.2; GLUCOSE,POINT OF CARE 276 MG/DL (70-110)
[2024-01-09 20:00] VITALS: BP 146/86; PULSE 99; RESP 20; TEMP 97.8
[2024-01-09 23:31] LABS: GLUCOMETER DEV NAME(LOC) 6N.2B; GLUCOSE,POINT OF CARE 341 MG/DL (70-110)
[2024-01-10 04:21] VITALS: BP 128/78; PULSE 80; RESP 18; TEMP 97.6
[2024-01-10 07:36] LABS: GLUCOMETER DEV NAME(LOC) 6S.2; GLUCOSE,POINT OF CARE 272 MG/DL (70-110)
[2024-01-10 08:11] VITALS: BP 155/81; PULSE 75; RESP 18; TEMP 97.8
[2024-01-10 12:26] LABS: GLUCOMETER DEV NAME(LOC) 6S.2; GLUCOSE,POINT OF CARE 343 MG/DL (70-110)
[2024-01-10] MEDS ORDERED: BISACODYL 10 MG RECTAL RECTAL SUPPOSITORY PR PRN (15:15)
[2024-01-10] MEDS ORDERED: MAGNESIUM HYDROXIDE SUSPENSION 30 ML UDCUP PO PRN (15:15)
[2024-01-10 16:13] VITALS: BP 149/75; PULSE 79; RESP 18; TEMP 98.4
[2024-01-10] MEDS: OxyCODONE HCL/ACETAMINOPHEN 5-325 MG TABLET PO PRN (17:19)
[2024-01-10 18:11] LABS: GLUCOMETER DEV NAME(LOC) 6S.2; GLUCOSE,POINT OF CARE 275 MG/DL (70-110)
[2024-01-10 19:34] VITALS: BP 156/74; PULSE 71; RESP 18; TEMP 98.4
[2024-01-10] MEDS: INSULIN GLARGINE,HUM.REC.ANLOG 100 UNITS/ML SQ SCH (20:27)
[2024-01-10 21:47] LABS: GLUCOMETER DEV NAME(LOC) 6N.2B; GLUCOSE,POINT OF CARE 278 MG/DL (70-110)
[2024-01-11 04:05] VITALS: BP 125/78; PULSE 66; RESP 18; TEMP 97.6
[2024-01-11 07:14] LABS: BASOPHILS % (AUTO) 0.3 % (0.0-2.0); EOSINOPHILS % (AUTO) 1.6 % (1.0-6.0); HEMATOCRIT 42.6 % (36-46); HEMOGLOBIN 14.4 g/dL (12.0-16.0); LYMPHOCYTES % (AUTO) 38.1 % (22.0-44.0); MEAN CORPUSCULAR HEMOGLOBIN 28.8 pg (26.0-34.0); MEAN CORPUSCULAR HGB CONC 33.9 G/dL (31.0-37.0); MEAN CORPUSCULAR VOLUME 85 fL (80-100); MONOCYTES # (AUTO) 0.9 K/uL (0.1-1.0); MONOCYTES % (AUTO) 11.2 % (2.0-9.0); NEUTROPHILS # (AUTO) 3.8 K/uL (1.8-7.7); NEUTROPHILS % (AUTO) 48.8 % (40.0-70.0); PLATELET COUNT (AUTO) 144 K/uL (150-450); RED BLOOD CELL COUNT(AUTO) 5.02 MIL/uL (4.00-5.20); RED CELL DISTRIBUTION WIDTH 16.2 % (11.5-14.5); WHITE BLOOD COUNT (AUTO) 7.7 K/uL (4.5-11.0)
[2024-01-11 07:30] LABS: POTASSIUM 3.8 mmol/L (3.5-5.1)
[2024-01-11 07:31] LABS: GLUCOMETER DEV NAME(LOC) 4E.2; GLUCOSE,POINT OF CARE 228 MG/DL (70-110)
[2024-01-11 07:46] VITALS: BP 147/81; PULSE 80; RESP 20; TEMP 97.4
[2024-01-11 15:42] VITALS: BP 126/67; PULSE 83; RESP 20; TEMP 98.4
[2024-01-11 16:40] LABS: GLUCOMETER DEV NAME(LOC) 4E.2; GLUCOSE,POINT OF CARE 299 MG/DL (70-110)
[2024-01-11 18:26] LABS: GLUCOMETER DEV NAME(LOC) 6N.2B; GLUCOSE,POINT OF CARE 249 MG/DL (70-110)
[2024-01-11 19:40] VITALS: BP 133/83; PULSE 61; RESP 20; TEMP 97.6
[2024-01-11] MEDS: INSULIN GLARGINE,HUM.REC.ANLOG 100 UNITS/ML SQ SCH (19:59)
[2024-01-11 20:31] LABS: GLUCOMETER DEV NAME(LOC) 6N.2B; GLUCOSE,POINT OF CARE 269 MG/DL (70-110)
[2024-01-12 04:05] VITALS: BP 172/76; PULSE 75; RESP 18; TEMP 97.8
[2024-01-12 05:42] VITALS: BP 151/65; PULSE 75; RESP 20
[2024-01-12 05:56] LABS: GLUCOMETER DEV NAME(LOC) 6N.2B; GLUCOSE,POINT OF CARE 198 MG/DL (70-110)
[2024-01-12 08:13] VITALS: BP_SYST 110; BP_SYST 126; BP_DIAS 74; BP_DIAS 75; PULSE 68; PULSE 79; RESP 18; RESP 20; TEMP 97.8; TEMP 98
[2024-01-12 17:11] VITALS: BP 122/75; PULSE 79; RESP 18; TEMP 97.8
[2024-01-12 18:51] LABS: GLUCOMETER DEV NAME(LOC) 6S.2; GLUCOSE,POINT OF CARE 255 MG/DL (70-110)
[2024-01-12 19:49] VITALS: BP 151/70; PULSE 83; RESP 18; TEMP 97.9
[2024-01-12] MEDS: INSULIN GLARGINE,HUM.REC.ANLOG 100 UNITS/ML SQ SCH (20:09)
[2024-01-12 22:31] LABS: GLUCOMETER DEV NAME(LOC) 6S.2; GLUCOSE,POINT OF CARE 258 MG/DL (70-110)
[2024-01-13] MEDS: ACETAMINOPHEN 325 MG TABLET PO PRN (00:10)
[2024-01-13 04:17] VITALS: BP 137/73; PULSE 81; RESP 18; TEMP 97.8
[2024-01-13 08:05] VITALS: BP 140/76; PULSE 80; RESP 18; TEMP 97.9
[2024-01-13 11:31] LABS: GLUCOMETER DEV NAME(LOC) 6S.1C; GLUCOSE,POINT OF CARE 197 MG/DL (70-110)
[2024-01-13 11:31] LABS: GLUCOMETER DEV NAME(LOC) 6S.1C; GLUCOSE,POINT OF CARE 211 MG/DL (70-110)
[2024-01-13 15:59] VITALS: BP 134/78; PULSE 84; RESP 20; TEMP 98.1
[2024-01-13 17:46] LABS: GLUCOMETER DEV NAME(LOC) 6N.2B; GLUCOSE,POINT OF CARE 273 MG/DL (70-110)
[2024-01-13 20:00] VITALS: BP 115/63; PULSE 89; RESP 20; TEMP 97.5
[2024-01-14 04:00] VITALS: BP 140/83; PULSE 92; RESP 18; TEMP 97.4
[2024-01-14 06:41] LABS: GLUCOMETER DEV NAME(LOC) 6S.1C; GLUCOSE,POINT OF CARE 306 MG/DL (70-110)
[2024-01-14 07:01] LABS: GLUCOMETER DEV NAME(LOC) 6S.2; GLUCOSE,POINT OF CARE 310 MG/DL (70-110)
[2024-01-14 09:35] LABS: GLUCOMETER DEV NAME(LOC) 6S.1C; GLUCOSE,POINT OF CARE 252 MG/DL (70-110)
[2024-01-14 12:32] VITALS: BP 168/85; PULSE 94; RESP 18; TEMP 97.4
[2024-01-14 13:45] LABS: GLUCOMETER DEV NAME(LOC) 4E.2; GLUCOSE,POINT OF CARE 281 MG/DL (70-110)
[2024-01-14 19:18] VITALS: BP 141/72; PULSE 95; RESP 20; TEMP 97.5
[2024-01-14 20:16] LABS: GLUCOMETER DEV NAME(LOC) 6N.2B; GLUCOSE,POINT OF CARE 281 MG/DL (70-110)
[2024-01-14 20:16] LABS: GLUCOMETER DEV NAME(LOC) 6S.2; GLUCOSE,POINT OF CARE 275 MG/DL (70-110)
[2024-01-15 03:11] LABS: GLUCOMETER DEV NAME(LOC) 6S.2; GLUCOSE,POINT OF CARE 251 MG/DL (70-110)
[2024-01-15 04:28] VITALS: BP 141/72; PULSE 86; RESP 18; TEMP 97.7
[2024-01-15 07:45] VITALS: BP 134/74; PULSE 89; RESP 18; TEMP 98.5
[2024-01-15 08:11] LABS: GLUCOMETER DEV NAME(LOC) 4E.2; GLUCOSE,POINT OF CARE 205 MG/DL (70-110)
[2024-01-15 08:11] LABS: GLUCOMETER DEV NAME(LOC) 6N.2B; GLUCOSE,POINT OF CARE 180 MG/DL (70-110)
[2024-01-15] MEDS ORDERED: SODIUM CHLORIDE 0.9% 1,000 ML ONE (10:14)
[2024-01-15 11:05] LABS: GLUCOMETER DEV NAME(LOC) 6S.2; GLUCOSE,POINT OF CARE 229 MG/DL (70-110)
[2024-01-15] MEDS ORDERED: LORazepam 2 MG/ML VIAL IM ONE (14:38)
== END 2024-01-15 10:36 | DRG 637 ==
LOC: EMS 23:20 → 5N 01-06 11:02 → 6S 01-08 06:35
PROVIDERS: ADMIT Internal Medicine; ATTEND Internal Medicine
PROC: 0BH17EZ Insertion of Endotracheal Airway into Trachea, Via Natural or Artificial Opening (ICD-10-PCS; principal; 2024-01-15)
PROC: 5A1935Z Respiratory Ventilation, Less than 24 Consecutive Hours (ICD-10-PCS; 2024-01-15)
PROC: 5A12012 Performance of Cardiac Output, Single, Manual (ICD-10-PCS; 2024-01-15)
PROC: 3E0A3GC Introduction of Other Therapeutic Substance into Bone Marrow, Percutaneous Approach (ICD-10-PCS; 2024-01-15)
DX: E11.65 Type 2 diabetes mellitus with hyperglycemia (principal); N17.0 Acute kidney failure with tubular necrosis; E44.0 Moderate protein-calorie malnutrition; Z68.42 Body mass index [BMI] 45.0-49.9, adult; E66.2 Morbid (severe) obesity with alveolar hypoventilation; I10 Essential (primary) hypertension; R62.7 Adult failure to thrive; E78.00 Pure hypercholesterolemia, unspecified; E87.6 Hypokalemia; F32.A Depression, unspecified; F41.9 Anxiety disorder, unspecified; Z20.822 Contact with and (suspected) exposure to COVID-19; G43.909 Migraine, unspecified, not intractable, without status migrainosus; D72.829 Elevated white blood cell count, unspecified; Z79.4 Long term (current) use of insulin; Z79.899 Other long term (current) drug therapy; Z90.49 Acquired absence of other specified parts of digestive tract; Z90.710 Acquired absence of both cervix and uterus; Z86.73 Personal history of transient ischemic attack (TIA), and cerebral infarction without residual deficits; Z91.148 Patient's other noncompliance with medication regimen for other reason; Z87.442 Personal history of urinary calculi; Z91.199 Patient's noncompliance with other medical treatment and regimen due to unspecified reason; Z83.3 Family history of diabetes mellitus; R56.9 Unspecified convulsions; I46.9 Cardiac arrest, cause unspecified; I25.10 Atherosclerotic heart disease of native coronary artery without angina pectoris; I12.9 Hypertensive chronic kidney disease with stage 1 through stage 4 chronic kidney disease, or unspecified chronic kidney disease; E11.22 Type 2 diabetes mellitus with diabetic chronic kidney disease; N18.9 Chronic kidney disease, unspecified
CPT/HCPCS: 36600; 71045; 80048; 80053; 81001; 82009; 82805; 82962; 83605; 83690; 84132; 84484; 85025; 87081; 92950; 93005; 97110; 97116; 97163; 97166; 97530; 97535; 99285; J1644; J1815; J2060; J2270; J2405; J7030; 36415-L1; 36415-TC